=== PATIENT | male | born 1970 | race Caucasian/White ===

== ENCOUNTER 2016-10-08 09:03 | Inpatient (IN) | payer MEDICAID, OTHER ==
[~2016-10-08] VITALS: Ht 180.3 cm; Wt 112.4 kg
[2016-10-08] VITALS (8 sets, daily range): BP systolic 117–160; BP diastolic 57–85; PULSE 61–91; RESP 15–20; TEMP 97.9–98; O2SAT 97–100
[~2016-10-08 09:03] MED LIST: Z.0.NO CURRENT MEDS
[2016-10-08] MEDS ORDERED: CLOPIDOGREL 300 MG TAB PO ONE (09:30)
[2016-10-08] MEDS ORDERED: SODIUM CHLORIDE 0.9% FLUSH 5 ML FLUSH IVF PRN (09:30)
[2016-10-08] MEDS ORDERED: NITROGLYCERIN 2% OINT 1 GM PACKET TOP ONE (09:30)
[2016-10-08] MEDS ORDERED: MORPHINE SULFATE 4 MG/ML INJ IV PUSH ONE (09:30)
[2016-10-08] MEDS ORDERED: ASPIRIN 81 MG CHEW TAB PO ONE (09:30)
[2016-10-08] MEDS ORDERED: ENOXAPARIN SODIUM 120 MG/0.8 ML SYRINGE SQ ONE (09:30)
[2016-10-08 10:07] LABS: AUTOMATED NEUTROPHIL # 6.8 TH/MM3 (1.8-7.7); BASOPHIL # 0.1 TH/MM3 (0-0.2); BASOPHIL % 0.7 % (0.0-2.0); EOSINOPHIL # 0.1 TH/MM3 (0-0.4); EOSINOPHIL % 1.5 % (0.0-4.0); HEMATOCRIT 45.3 % (39.0-51.0); HEMO FLAGS DIFF FINAL; LYMPH % 18.6 % (9.0-44.0); LYMPHOCYTE # 1.8 TH/MM3 (1.0-4.8); MEAN CELL VOLUME 92.7 FL (80.0-100.0); MEAN CORPUSCULAR HEMOGLOBIN 32.9 PG (27.0-34.0); MEAN CORPUSCULAR HGB CONC 35.5 % (32.0-36.0); MONO % 7.5 % (0.0-8.0); NEUT % 71.7 % (16.0-70.0); PLATELET COUNT 253 TH/MM3 (150-450); RED BLOOD COUNT 4.89 MIL/MM3 (4.50-5.90); RED CELL DISTRIBUTION WIDTH 13.1 % (11.6-17.2); WHITE BLOOD COUNT 9.5 TH/MM3 (4.0-11.0)
--- NOTE | 2016-10-08 10:12 | PD ---
HPI . Chest pain Chief Complaint: Chest Pain Time Seen by Provider: 09:18 Travel History International Travel<30 days: No Contact w/Intl Traveler<30days: No Traveled to known affect area: No History of Present Illness HPI Patient presents with the onset of chest pain at about 6:30 AM. It was associated with both arms, shortness of breath, nausea and diaphoresis. It has slowly improved. He states that the pain started when he was loading his stools for the day and improved when he started resting. Patient states he's actually been having problems for about 6 weeks. 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 The pain then improves when he rests. The pain is generally associated with diaphoresis. He describes the discomfort as a weight on his chest. He reports 18-20 episodes in the last 6 weeks lasting anywhere from 15-40 minutes. He has not been evaluated by a physician for this . Patient reports a positive family history for heart disease and states that he is a smoker. PFSH Past Medical History Medical History: Denies Significant Hx Diminished Hearing: No Tetanus Vaccination: > 5 Years Influenza Vaccination: No Past Surgical History Surgical History: No Previous Surgery Social History Alcohol Use: No Tobacco Use: No Substance Use: No Allergies-Medications (Allergen,Severity, Reaction): Coded Allergies: Penicillin (Verified Allergy, Mild, 10/08/16) Reported Meds & Prescriptions Reported Meds & Active Scripts Active No Active Prescriptions or Reported Medications Review of Systems Except as stated in HPI: all other systems reviewed are Neg General / Constitutional: Positive: Other, No: Fever, Chills Cardiovascular: Positive: Chest Pain or Discomfort (diaphoresis) Respiratory: Positive: Shortness of Breath Gastrointestinal: Positive: Nausea Physical Exam Narrative GENERAL: This is a pleasant gentleman who does not appear to be in any acute distress at this time. SKIN: Warm and dry. HEAD: Atraumatic. Normocephalic. EYES: Pupils equal and round. ENT: No nasal bleeding or discharge. Mucous membranes pink and moist. NECK: Trachea midline. Neck is supple. CARDIOVASCULAR: Regular rate and rhythm. Heart sounds are normal. RESPIRATORY: No accessory muscle use. Lungs are clear with full air movement throughout. Chest wall is nontender. GASTROINTESTINAL: Abdomen soft, non-tender, nondistended. MUSCULOSKELETAL: No obvious deformities. No edema. NEUROLOGICAL: Awake and alert. No obvious cranial nerve deficits. Motor grossly within normal limits. Normal speech. PSYCHIATRIC: Appropriate mood and affect; insight and judgment normal. Data Data Last Documented VS Vital Signs Date Time Temp Pulse Resp B/P Pulse Ox O2 Delivery O2 Flow Rate FiO2 10/08/16 10:12 100 Nasal Cannula 2 10/08/16 09:06 97.9 91 15 160/85 Orders Electrocardiogram (10/08/16 ) Basic Metabolic Panel (Bmp) (10/08/16 09:28) Ckmb (Isoenzyme) Profile (10/08/16 09:28) Complete Blood Count With Diff (10/08/16 09:28) Magnesium (Mg) (10/08/16 09:28) Prothrombin Time / Inr (Pt) (10/08/16 09:28) Act Partial Throm Time (Ptt) (10/08/16 09:28) Troponin I (10/08/16 09:28) Chest, Single Ap (10/08/16 09:28) Ecg Monitoring (10/08/16 09:28) Bilateral Bp Monitoring (10/08/16 09:28) Iv Access Insert/Monitor (10/08/16 09:28) Oximetry (10/08/16 09:28) Oxygen Administration (10/08/16 09:28) Aspirin Chew (Aspirin Chew) (10/08/16 09:30) Clopidogrel (Plavix) (10/08/16 09:30) Morphine Inj (Morphine Inj) (10/08/16 09:30) Nitroglycerin 2% Oint (Nitroglycerin 2% (10/08/16 09:30) Sodium Chloride 0.9% Flush (Ns Flush) (10/08/16 09:30) Enoxaparin Inj (Lovenox Inj) (10/08/16 09:30) Electrocardiogram (10/08/16 10:00) Acetaminophen (Tylenol) (10/08/16 11:00) Consult Cardiology (10/08/16 ) Labs Laboratory Tests Test 10/08/16 09:50 White Blood Count 9.5 TH/MM3 Red Blood Count 4.89 MIL/MM3 Hemoglobin 16.1 GM/DL Hematocrit 45.3 % Mean Corpuscular Volume 92.7 FL Mean Corpuscular Hemoglobin 32.9 PG Mean Corpuscular Hemoglobin 35.5 % Concent Red Cell Distribution Width 13.1 % Platelet Count 253 TH/MM3 Mean Platelet Volume 9.7 FL Neutrophils (%) (Auto) 71.7 % Lymphocytes (%) (Auto) 18.6 % Monocytes (%) (Auto) 7.5 % Eosinophils (%) (Auto) 1.5 % Basophils (%) (Auto) 0.7 % Neutrophils # (Auto) 6.8 TH/MM3 Lymphocytes # (Auto) 1.8 TH/MM3 Monocytes # (Auto) 0.7 TH/MM3 Eosinophils # (Auto) 0.1 TH/MM3 Basophils # (Auto) 0.1 TH/MM3 CBC Comment DIFF FINAL Differential Comment Prothrombin Time 10.9 SEC Prothromb Time International 1.0 RATIO Ratio Activated Partial 29.7 SEC Thromboplast Time Sodium Level 139 MEQ/L Potassium Level 3.6 MEQ/L Chloride Level 106 MEQ/L Carbon Dioxide Level 25.1 MEQ/L Anion Gap 8 MEQ/L Blood Urea Nitrogen 10 MG/DL Creatinine 0.94 MG/DL Estimat Glomerular Filtration 86 ML/MIN Rate Random Glucose 101 MG/DL Calcium Level 8.9 MG/DL Magnesium Level 2.0 MG/DL Total Creatine Kinase 88 U/L Troponin I 0.06 NG/ML MDM Medical Decision Making Medical Screen Exam Complete: Yes Emergency Medical Condition: Yes Medical Record Reviewed: Yes (patient has no previous presentations for chest pain and has no old EKGs.) Interpretation(s) EKG shows a sinus rhythm with ST segment depression in the V3, V4, V5 and V6. He also has some ST segment depression in lead II and T-wave inversion in aVL. Furthermore, he has ST segment elevation in aVR. Repeat EKG is improving. The ST segment depression laterally is almost completely gone. He still has some mild ST segment elevation in aVR. Differential Diagnosis Differential diagnosis of chest pain includes but is not limited to musculoskeletal pain, pulmonary embolism, acute coronary syndrome, pneumonia, pleurisy Narrative Course Patient presents for evaluation of anginal like symptoms which have been occurring for the last 6 weeks. I have explained to the patient that he will either go to the catheter lab if his cardiac enzymes are positive go to the chest pain center if his cardiac enzymes are negative. He is agreeable to this plan. CBC is normal. INR and PTT are normal. Electrolytes are normal. CK is 88 and troponin is 0.06. 11 AM Patient is pain-free. I have paged to arrange for disposition. Critical Care Narrative Aggregate critical care time was [-] minutes. Time to perform other separately billable procedures was not included in the critical care time. My time did not include minutes spent treating any other patients simultaneously or on activities that did not directly contribute to the patient's treatment. The services I provided to this patient were to treat and/or prevent clinically significant deterioration that could result in: Fatal cardiac dysrhythmia, cardiac disability I provided critical care services requiring my management, as noted below: Chart data review, documentation time, medication orders and management, vital sign assessments/reviewing monitor data, ordering and reviewing lab tests, ordering and interpreting/reviewing x-rays and diagnostic studies, care of the patient and discussion of the patient with the admitting physicians. Physician Communication Physician Communication [address] Fountain paged. Diagnosis Primary Impression: NSTEMI (non-ST elevated myocardial infarction) Admitting Information Admitting Physician Requests: Admit Scripts No Active Prescriptions or Reported Meds Condition: Stable Araceli Govea MD Oct 08, 2016 10:12
[2016-10-08 10:20] LABS: APTT (PATIENT) 29.7 SEC (24.3-30.1); PROTHROMBIN TIME - PATIENT 10.9 SEC (9.8-11.6)
[2016-10-08 10:22] LABS: BICARBONATE 25.1 MEQ/L (21.0-32.0); POTASSIUM 3.6 MEQ/L (3.5-5.1)
--- NOTE | 2016-10-08 10:28 | RADRPT ---
EXAM DATE/TIME: 10/08/2016 09:46 [facility] COMPARISON: No previous studies available for comparison. INDICATIONS : Chest pain. MEDICAL HISTORY : None. SURGICAL HISTORY : None. ENCOUNTER: Initial ACUITY: 4 - 6 days PAIN SCORE: 5/10 LOCATION: Bilateral center chest FINDINGS: A single view of the chest demonstrates the lungs to be symmetrically aerated without evidence of mas s, infiltrate or effusion. The cardiomediastinal contours are unremarkable. Osseous structures are intact. CONCLUSION: Normal examination. Milind Mahajan MD on October 08, 2016 at 10:26 Board Certified Radiologist. This report was verified electronically.
[2016-10-08] MEDS ORDERED: ACETAMINOPHEN 325 MG TAB PO ONE (11:00)
[2016-10-08] MEDS ORDERED: PRAVASTATIN SOD 40 MG TAB PO SCH (12:00)
[2016-10-08] MEDS ORDERED: SODIUM CHLOR 0.9% 1000 ML INJ 1,000 ML IV SCH (12:36)
[2016-10-08] MEDS ORDERED: SODIUM CHLORIDE 0.9% FLUSH 5 ML FLUSH FLUSH PRN (12:45)
[2016-10-08] MEDS ORDERED: NALOXONE HCL 0.4 MG/ML AMP IV PRN (12:45)
[2016-10-08] MEDS ORDERED: BISACODYL 10 MG SUPP PR PRN (13:00)
[2016-10-08] MEDS ORDERED: MORPHINE SULFATE 4 MG/ML INJ IV PRN (13:00)
[2016-10-08] MEDS ORDERED: SENNOSIDES 8.6 MG TAB PO PRN (13:00)
[2016-10-08] MEDS ORDERED: MAGNESIUM HYDROXIDE SUSP 30 ML CUP PO PRN (13:00)
[2016-10-08] MEDS ORDERED: ONDANSETRON HCL 4 MG/2 ML VIAL IVP PRN (13:00)
[2016-10-08] MEDS ORDERED: ACETAMINOPHEN/HYDROcodone 325 MG/7.5 MG TAB PO PRN (13:00)
[2016-10-08] MEDS: METOPROLOL TARTRATE 25 MG TAB PO SCH (13:59)
[2016-10-08] MEDS: DOCUSATE SODIUM 100 MG CAP PO SCH (13:59)
[2016-10-08] MEDS: NS + KCL 20 MEQ INJ 1,000 ML IV SCH (13:59)
--- NOTE | 2016-10-08 14:13 | HHI.HP ---
[facility] Service [facility] Primary Care Physician No Primary Care Physician Admission Diagnosis NSTEMI Diagnoses: Chief Complaint: Chest pain Travel History International Travel<30 Days: No Contact w/Intl Traveler <30 Da: No Traveled to Known Affected Are: No History of Present Illness This is a 46-year-old male smoker who presented to the emergency room because of chest pain. Patient states he developed moderate sharp right sided chest pain scale of 8 out of 10 that lasted for 15 minutes this morning and radiated to bilateral upper extremities associated with shortness of breath, diaphoresis and nausea. Slowly improved without medications. It recurred while he was preparing to go to work prompting ER evaluation. Patient states he's been having on and off exertional chest pain for the past 6 weeks. It is not pleuritic and doesn't feel like heartburn. 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 Denies dizziness and palpitations. No history of CAD, peripheral vascular disease, DVT and pulmonary embolism. He traveled to [facility] 3 weeks ago but denies leg pain. He has intermittent hand, foot pain and lower extremity swelling whenever he drinks last alcohol intake 3 weeks ago. In the emergency department, he was noted to have abnormal EKG(see below) and slightly elevated troponin. Cardiology plans to do cardiac catheterization later today and requested medical services to admit the patient. At this time he is pain-free. Patient reports a positive family history for heart disease and a 36 pack year smoker. Review of Systems Constitutional: COMPLAINS OF: Diaphoretic episodes, DENIES: Fatigue, Fever, Weight gain, Weight loss, Chills, Dizziness, Change in appetite, Night Sweats Endocrine: DENIES: Heat/cold intolerance, Polydipsia, Polyuria, Polyphagia Eyes: DENIES: Blurred vision, Diplopia, Vision loss, Photosensitivity Ears, nose, mouth, throat: DENIES: Tinnitus, Vertigo, Throat pain, Hoarseness, Epistaxis, Odynophagia Respiratory: COMPLAINS OF: Shortness of breath, DENIES: Cough, Wheezing, Hemoptysis, Sputum production Cardiovascular: COMPLAINS OF: Chest pain, DENIES: Palpitations, Syncope, Dyspnea on Exertion, PND, Lower Extremity Edema, Orthopnea, Claudication Gastrointestinal: COMPLAINS OF: Nausea, DENIES: Abdominal pain, Black stools, Bloody stools, Constipation, Diarrhea, Vomiting, Difficulty Swallowing, Anorexia Genitourinary: DENIES: Urinary frequency, Urinary incontinence, Urgency, Hematuria, Dysuria, Nocturia, Penile Discharge Musculoskeletal: COMPLAINS OF: Muscle aches, Back pain (from work ) Integumentary: DENIES: Rash Neurologic: DENIES: Headache, Localized weakness, Seizures, Tremor, Poor Balance Psychiatric: DENIES: Anxiety, Confusion, Depression, Hallucinations, Agitation , Suicidal Ideation, Homicidal Ideation, Delusions Past Family Social History Past Medical History Negative Past Surgical History None Reported Medications None Allergies: Coded Allergies: Penicillin (Verified Allergy, Mild, 10/08/16) Family History as mentioned Social History As mentioned Physical Exam Vital Signs Vital Signs Date Time Temp Pulse Resp B/P Pulse Ox O2 Delivery O2 Flow Rate FiO2 10/08/16 12:40 75 16 131/77 98 Nasal Cannula 2 10/08/16 10:12 100 Nasal Cannula 2 10/08/16 10:12 100 Nasal Cannula 2 10/08/16 09:16 Room Air 10/08/16 09:06 97.9 91 15 160/85 98 Physical Exam GENERAL: This is a well-nourished, well-developed patient, in no apparent distress. SKIN: No rashes, ecchymoses or lesions. Cool and dry. HEAD: Atraumatic. Normocephalic. No temporal or scalp tenderness. EYES: Pupils equal round and reactive. Extraocular motions intact. No scleral icterus. No injection or drainage. ENT: Nose without bleeding, purulent drainage or septal hematoma. Throat without erythema, tonsillar hypertrophy or exudate. Uvula midline. Airway patent. NECK: Trachea midline. No JVD or lymphadenopathy. Supple, nontender, no meningeal signs. CARDIOVASCULAR: Regular rate and rhythm without murmurs, gallops, or rubs. No reproducible chest pain RESPIRATORY: Clear to auscultation. Breath sounds equal bilaterally. No wheezes , rales, or rhonchi. GASTROINTESTINAL: Abdomen soft, non-tender, nondistended. No guarding. MUSCULOSKELETAL: Extremities without clubbing, cyanosis, or edema. No joint tenderness, effusion, or edema noted. No calf tenderness. Negative Homans sign bilaterally. NEUROLOGICAL: Awake and alert. Cranial nerves II through XII intact. Motor and sensory grossly within normal limits. Five out of 5 muscle strength in all muscle groups. Normal speech. Laboratory Laboratory Tests Test 10/08/16 09:50 White Blood Count 9.5 Red Blood Count 4.89 Hemoglobin 16.1 Hematocrit 45.3 Mean Corpuscular Volume 92.7 Mean Corpuscular Hemoglobin 32.9 Mean Corpuscular Hemoglobin 35.5 Concent Red Cell Distribution Width 13.1 Platelet Count 253 Mean Platelet Volume 9.7 Neutrophils (%) (Auto) 71.7 Lymphocytes (%) (Auto) 18.6 Monocytes (%) (Auto) 7.5 Eosinophils (%) (Auto) 1.5 Basophils (%) (Auto) 0.7 Neutrophils # (Auto) 6.8 Lymphocytes # (Auto) 1.8 Monocytes # (Auto) 0.7 Eosinophils # (Auto) 0.1 Basophils # (Auto) 0.1 CBC Comment DIFF FINAL Differential Comment Prothrombin Time 10.9 Prothromb Time International 1.0 Ratio Activated Partial 29.7 Thromboplast Time Sodium Level 139 Potassium Level 3.6 Chloride Level 106 Carbon Dioxide Level 25.1 Anion Gap 8 Blood Urea Nitrogen 10 Creatinine 0.94 Estimat Glomerular Filtration 86 Rate Random Glucose 101 Calcium Level 8.9 Magnesium Level 2.0 Total Creatine Kinase 88 Troponin I 0.06 Result Diagram: 10/08/1650 10/08/16949 Imaging EKG shows a sinus rhythm with ST segment depression in the V3, V4, V5 and V6. He also has some ST segment depression in lead II and T-wave inversion in aVL. Tracing interpreted by me Chest x-ray image interpreted by me with no cardiopulmonary disease Last Impressions Chest X-Ray 10/08/16927 Signed Impressions: Service Date/Time: Saturday, October 08, 2016 09:46 - CONCLUSION: Normal examination. Milind Mahajan MD Assessment and Plan Problem List: (1) NSTEMI (non-ST elevated myocardial infarction) ICD Code: I21.4 Status: Acute Assessment and Plan This is a 46-year-old male smoker who presented to the emergency room because of chest pain. Patient states he developed moderate sharp right sided chest pain scale of 8 out of 10 that lasted for 15 minutes this morning and radiated to bilateral upper extremities associated with shortness of breath, diaphoresis and nausea. Slowly improved without medications. It recurred while he was preparing to go to work prompting ER evaluation. Patient states he's been having on and off exertional chest pain for the past 6 weeks. It is not pleuritic and doesn't feel like heartburn. 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 Denies dizziness and palpitations. NSTEMI with abnormal EKG and slightly elevated troponin. At this time he is pain-free. Cardiology plans to do cardiac catheterization later today. Continue aspirin, nitrates, Lopressor and statin. Risk factor modification. Obtain A1c and lipid profile. Tobacco cessation Grief from recent loss of his mother. Counselled DVT prophylaxis s/p Lovenox Discussed Condition With pt Quinton Alonso MD Oct 08, 2016 14:13
[2016-10-08] MEDS ORDERED: IOHEXOL 350 MG/ML 100 ML BTL (for Cath Lab) OTHER ONE (14:25)
[2016-10-08] MEDS ORDERED: IOHEXOL 350 MG/ML 50 ML BTL (for Cath Lab) OTHER ONE (14:25)
[2016-10-08] MEDS ORDERED: PRAV40TA PO (15:20)
[2016-10-08] MEDS ORDERED: NITR1SUB3 SL (15:20)
--- NOTE | 2016-10-08 15:21 | HHI.DCPOC ---
Discharge Care Plan Diagnosis: (1) NSTEMI (non-ST elevated myocardial infarction) Your Health Problems Are: Difficulty with ADL Exercise Tolerance Goals to Promote Your Health * To prevent worsening of your condition and complications * To maintain your health at the optimal level Directions to Meet Your Goals Take your medications as prescribed Follow your dietary instruction Follow activity as directed Keep your appointments as scheduled Take your immunizations and boosters as scheduled If your symptoms worsen call your PCP, if no PCP go to Urgent Care Center or Emergency Room Smoking is Dangerous to Your Health. Avoid second hand smoke Call the 24-hour hour crisis hotline for domestic abuse at Quinton Alonso MD Oct 08, 2016 15:21
--- NOTE | 2016-10-08 16:09 | EKG ---
Date Performed: 10/08/2016 Time Performed: 10:15:28 PTAGE: 46 years EKG: Sinus rhythm NONSPECIFIC ST & T-WAVE ABNORMALITY BORDERLINE ECG PREVIOUS TRACING : 10/08/2016 09.16 Compared to prior tracing no significant change DOCTOR: Hasmukh Nelson Interpretating Date/Time 10/08/2016 16:09:13
--- NOTE | 2016-10-08 16:13 | EKG ---
Date Performed: 10/08/2016 Time Performed: 09:16:12 PTAGE: 46 years EKG: Sinus rhythm POSSIBLE LEFT ATRIAL ENLARGEMENT BORDERLINE LEFT AXIS DEVIATION NONSPECIFIC ST & T-WAVE ABNORMALITY ABNORMAL ECG NO PREVIOUS TRACING DOCTOR: Hasmukh Nelson Interpretating Date/Time 10/08/2016 16:11:42
--- NOTE | 2016-10-08 16:15 | MB ---
cc: MICHAELLE DEVLIN DATE OF CONSULTATION: 10/08/2016. REASON FOR CONSULTATION: HISTORY OF PRESENT ILLNESS: Mr. Freedman is a 46-year-old white male with six week history of substernal chest discomfort which he describes as a weight on his chest associated with diaphoresis and dyspnea. 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 The patient has a strong family history of coronary artery disease and states his father at the age of 52. PAST MEDICAL HISTORY: His past medical history is negative for hypertension, dyslipidemia, diabetes, coronary artery disease and CVA. PAST SURGICAL HISTORY: No major surgeries. MEDICATIONS: None. ALLERGIES: PENICILLIN. SOCIAL HISTORY: The patient is a smoker. He quit drinking alcohol nine months ago. 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 FAMILY HISTORY: The family history is strongly positive for heart disease. His father at the age of 52 of myocardial infarction. REVIEW OF SYSTEMS: The review of systems is otherwise negative. PHYSICAL EXAMINATION: VITAL SIGNS: Blood pressure is 150/85, pulse 91 and regular. HEAD, EYES, EARS, NOSE, THROAT: Negative. NECK: 2+ carotid upstrokes, no bruits. LUNGS: Clear. HEART: Regular with no murmurs, rubs or gallops. ABDOMEN: Abdomen soft. No bruits. EXTREMITIES: Without edema. 2+ distal pulses. NEUROLOGIC: Grossly intact. CARDIOLOGY STUDIES: EKG was reviewed and showed normal sinus rhythm and diffuse S-T depressions. LABS: Hemoglobin 16.1. Potassium 3.6, creatinine 0.9. CK 88. Troponin 0.06. DIAGNOSIS: 1. Non S-T elevation myocardial infarction. 2. Smoking. 3. Strong family history of coronary artery disease. DISPOSITION: Mr. Freedman will be scheduled for a cardiac catheterization and coronary intervention if necessary. This will need to be delayed because he was fully anticoagulated with Lovenox by the emergency room physician. We will initiate aggressive modification ofhis cardiac risk factors. We will also initiate therapy for angina. MD MYKEL Eugene/GELY /11:50 AM /4:05 PM [facility]ALTanmay
[2016-10-08] MEDS ORDERED: HEPARIN-NS/PF INJ 500 ML ONE (16:34)
[2016-10-08] MEDS ORDERED: MIDAZOLAM HCL 5 MG/5 ML VIAL ONE (16:34)
[2016-10-08] MEDS ORDERED: NITROGLYCERIN INJ 5 ML ONE (16:59)
[2016-10-08] MEDS: NITROGLYCERIN 2% OINT 1 GM PACKET TOP SCH (17:00)
[2016-10-08 19:00] LABS: HDL CHOLESTEROL 33.4 MG/DL (40.0-60.0)
[2016-10-08] MEDS ORDERED: SODIUM CHLOR 0.9% 1000 ML INJ 500 ML IV SCH (19:00)
[2016-10-08] MEDS: ISOSORBIDE MONONITRATE 30 MG TAB PO SCH (19:02)
[2016-10-08] MEDS: ATORVASTATIN 80 MG TAB PO SCH (19:15)
[2016-10-08] MEDS ORDERED: METOPROLOL TARTRATE 25 MG TAB PO SCH (21:00)
[2016-10-09] VITALS (22 sets, daily range): BP systolic 98–155; BP diastolic 51–96; PULSE 56–98; RESP 18–20; TEMP 98–98.4; O2SAT 97–98
[2016-10-09] MEDS: NS + KCL 20 MEQ INJ 1,000 ML IV SCH ×2 (00:13→08:17)
[2016-10-09] MEDS: NITROGLYCERIN 2% OINT 1 GM PACKET TOP SCH ×2 (00:13→08:10)
[2016-10-09] MEDS: ACETAMINOPHEN/HYDROcodone 325 MG/5 MG TAB PO PRN (00:14)
[2016-10-09] MEDS: ISOSORBIDE MONONITRATE 30 MG TAB PO SCH (06:13)
[2016-10-09 07:22] LABS: AUTOMATED NEUTROPHIL # 10.7 TH/MM3 (1.8-7.7); BASOPHIL % 0.2 % (0.0-2.0); EOSINOPHIL # 0.1 TH/MM3 (0-0.4); HEMATOCRIT 39.5 % (39.0-51.0); HEMO FLAGS DIFF FINAL; LYMPH % 10.3 % (9.0-44.0); LYMPHOCYTE # 1.4 TH/MM3 (1.0-4.8); MEAN CELL VOLUME 93.9 FL (80.0-100.0); MEAN CORPUSCULAR HEMOGLOBIN 32.6 PG (27.0-34.0); MEAN CORPUSCULAR HGB CONC 34.8 % (32.0-36.0); MONO % 7.8 % (0.0-8.0); NEUT % 80.7 % (16.0-70.0); PLATELET COUNT 204 TH/MM3 (150-450); RED CELL DISTRIBUTION WIDTH 12.7 % (11.6-17.2); WHITE BLOOD COUNT 13.2 TH/MM3 (4.0-11.0)
[2016-10-09 07:37] LABS: ALKALINE PHOSPHATASE 44 U/L (45-117); ALT (GPT) 23 U/L (12-78); ANION GAP 7 MEQ/L (5-15); AST (GOT) 11 U/L (15-37); BLOOD UREA NITROGEN 9 MG/DL (7-18); CHLORIDE 105 MEQ/L (98-107); GLOMERULAR FILTRATION RATE 101 ML/MIN (>89); HDL CHOLESTEROL 27.9 MG/DL (40.0-60.0); LDL CHOLESTEROL 104 MG/DL (0-99); POTASSIUM 4.1 MEQ/L (3.5-5.1); SODIUM (NA) 138 MEQ/L (136-145); TOTAL BILIRUBIN ADULT 0.7 MG/DL (0.2-1.0)
[2016-10-09] MEDS: ATORVASTATIN 80 MG TAB PO SCH (08:08)
[2016-10-09] MEDS: DOCUSATE SODIUM 100 MG CAP PO SCH ×2 (08:09→21:42)
[2016-10-09] MEDS: METOPROLOL TARTRATE 25 MG TAB PO SCH ×2 (08:09→21:42)
[2016-10-09] MEDS: ACETAMINOPHEN 325 MG TAB PO PRN ×2 (08:09→12:28)
[2016-10-09] MEDS: SODIUM CHLORIDE 0.9% FLUSH 5 ML FLUSH FLUSH SCH ×2 (08:10→21:42)
[2016-10-09] MEDS: ASPIRIN 81 MG CHEW TAB PO SCH (08:10)
[2016-10-09] MEDS ORDERED: ASPIRIN EC 81 MG TABEC PO SCH (09:00)
--- NOTE | 2016-10-09 11:10 | HHI.PR ---
Subjective Remarks Follow-up ND. No chest pain. Awaiting cardiovascular surgery consult. Discussed with RN Objective Vitals Vital Signs Date Time Temp Pulse Resp B/P Pulse Ox O2 Delivery O2 Flow Rate FiO2 10/09/16 09:42 18 10/09/16 07:45 60 10/09/16 07:45 98.4 67 18 155/51 97 10/09/16 06:00 65 10/09/16 05:00 66 10/09/16 04:40 98 10/09/16 04:00 59 10/09/16 04:00 98.0 63 20 98/62 98 10/09/16 03:00 65 10/09/16 02:00 67 10/09/16 01:00 66 10/09/16 00:00 98.0 70 20 101/66 98 10/09/16 00:00 64 10/08/16 23:00 63 10/08/16 22:00 62 10/08/16 21:30 98.0 61 20 135/77 98 10/08/16 21:30 65 10/08/16 19:55 Room Air 10/08/16 16:17 62 20 117/57 99 Nasal Cannula 2 10/08/16 14:00 65 20 122/63 97 Nasal Cannula 2 10/08/16 12:40 75 16 131/77 98 Nasal Cannula 2 I/O 10/08/16 10/08/16 10/08/16 10/09/16 10/09/16 10/09/16 07:00 15:00 23:00 07:00 15:00 23:00 Intake Total 420 ml Output Total 850 ml Balance -430 ml Intake Oral 420 ml Output Urine Total 850 ml Result Diagram: 10/09/1611 10/09/16610 Imaging Last Impressions Chest X-Ray 10/08/16927 Signed Impressions: Service Date/Time: Saturday, October 08, 2016 09:46 - CONCLUSION: Normal examination. Milind Mahajan MD Objective Remarks GENERAL: This is a well-nourished, well-developed patient, in no apparent distress. CARDIOVASCULAR: Regular rate and rhythm without murmurs, gallops, or rubs. RESPIRATORY: Clear to auscultation. Breath sounds equal bilaterally. No wheezes , rales, or rhonchi. GASTROINTESTINAL: Abdomen soft, non-tender, nondistended. Normal active bowel sounds MUSCULOSKELETAL: Extremities without clubbing, cyanosis, or edema. NEURO: Alert & Oriented x4 to person, place, time, situation. Moves all ext x4 Procedures Cardiac catheterization A/P Problem List: (1) NSTEMI (non-ST elevated myocardial infarction) ICD Code: I21.4 Status: Acute Assessment and Plan This is a 46-year-old male smoker who presented to the emergency room because of chest pain. Patient states he developed moderate sharp right sided chest pain scale of 8 out of 10 that lasted for 15 minutes this morning and radiated to bilateral upper extremities associated with shortness of breath, diaphoresis and nausea. Slowly improved without medications. It recurred while he was preparing to go to work prompting ER evaluation. Patient states he's been having on and off exertional chest pain for the past 6 weeks. It is not pleuritic and doesn't feel like heartburn. 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 Denies dizziness and palpitations. NSTEMI status post cardiac catheterization. At this time he is pain-free, continue aspirin, Lopressor, nitrates and Lipitor. Awaiting cardiovascular surgery evaluation. Risk factor modification. Follow-up A1c. Tobacco cessation Transient low BP secondary to meds. Improved. Nitro paste discontinued and Lopressor decreased. Continue to monitor Grief from recent loss of his mother. Counselled DVT prophylaxis s/p Lovenox. SCDs and early ambulation Discharge Planning Per cardiology and cardiovascular surgery Quinton Alonso MD Oct 09, 2016 11:10
--- NOTE | 2016-10-09 12:19 | EKG ---
Date Performed: 10/08/2016 Time Performed: 14:16:27 PTAGE: 46 years EKG: Sinus rhythm POSSIBLE RIGHT VENTRICULAR CONDUCTION DELAY NONSPECIFIC T-WAVE ABNORMALITY BORDERLINE ECG PREVIOUS TRACING : 10/08/2016 10.15 Compared to prior tracing no significant change DOCTOR: Paras Morales Interpretating Date/Time 10/09/2016 12:17:46
--- NOTE | 2016-10-09 12:19 | EKG ---
Date Performed: 10/08/2016 Time Performed: 20:49:18 PTAGE: 46 years EKG: Sinus bradycardia Lateral T wave changes are nonspecific Borderline ECG PREVIOUS TRACING 10/08/2016 @14.16.27 Compared to prior tracing no significant change DOCTOR: Paras Morales Interpretating Date/Time 10/09/2016 12:17:06
--- NOTE | 2016-10-09 12:36 | PD.CONS ---
History of Present Illness Service CT Surgery Consult Requested By Dr. Fountain Reason for Consult CAD, unstable angina Primary Care Physician No Primary Care Physician Diagnoses: (1) Unstable angina (2) CAD (coronary artery disease) History of Present Illness This is a 46-year-old male smoker who presented to the emergency room with rest chest pain. Patient states he developed chest pain scale of 8 out of 10 that lasted for 15 minutes this morning and radiated to bilateral upper extremities associated with shortness of breath, diaphoresis and nausea. This subsided over time and recurred while he was preparing to go to work prompting ER evaluation. Patient states he's been having on and off exertional chest pain for the past 6 weeks. No history of CAD, peripheral vascular disease, DVT and pulmonary embolism. He traveled to [facility] 3 weeks ago but denies leg pain. In the emergency department, he was noted to have abnormal EKG(see below) and slightly elevated troponin. At this time he is pain-free. Patient reports a positive family history for heart disease and a 36 pack year smoker. He underwent LHC by Dr. Fountain and was found to have a >90% proximal LAD lesion at the bifurcation from the left main. He is being considered for CABG. Review of Systems Constitutional: COMPLAINS OF: Diaphoretic episodes, Fatigue Endocrine: DENIES: Heat/cold intolerance, Polydipsia, Polyuria, Polyphagia Eyes: DENIES: Blurred vision, Diplopia, Eye inflammation, Eye pain, Vision loss , Photosensitivity, Double Vision Ears, nose, mouth, throat: DENIES: Tinnitus, Hearing loss, Vertigo, Nasal discharge, Oral lesions, Throat pain, Hoarseness, Ear Pain, Running Nose, Epistaxis, Sinus Pain, Toothache, Odynophagia Respiratory: DENIES: Apneas, Cough, Snoring, Wheezing, Hemoptysis, Sputum production, Shortness of breath Cardiovascular: COMPLAINS OF: Chest pain, DENIES: Palpitations, Syncope, Dyspnea on Exertion, PND, Lower Extremity Edema, Orthopnea, Claudication Gastrointestinal: DENIES: Abdominal pain, Black stools, Bloody stools, Constipation, Diarrhea, Nausea, Vomiting, Difficulty Swallowing, Anorexia Genitourinary: DENIES: Sexual dysfunction, Urinary frequency, Urinary incontinence, Urgency, Hematuria, Dysuria, Nocturia, Penile Discharge, Testicular Pain, Testicular Swelling Musculoskeletal: DENIES: Joint pain, Muscle aches, Stiffness, Joint Swelling, Back pain, Neck pain Integumentary: DENIES: Abnormal pigmentation, Nail changes, Pruritus, Rash Hematologic/lymphatic: DENIES: Bruising, Lymphadenopathy Immunologic/allergic: DENIES: Eczema, Urticaria Neurologic: DENIES: Abnormal gait, Headache, Localized weakness, Paresthesias, Seizures, Speech Problems, Tremor, Poor Balance Psychiatric: DENIES: Anxiety, Confusion, Mood changes, Depression, Hallucinations, Agitation, Suicidal Ideation, Homicidal Ideation, Delusions Past Family Social History Allergies: Coded Allergies: Penicillin (Verified Allergy, Mild, 10/08/16) Past Medical History none Past Surgical History none Reported Medications none Active Ordered Medications Current Medications Medications (Trade) Dose Ordered Sig/Jessi Route Start Time Stop Time Status Last Admin (Lopressor) 25 mg Q12HR PO 10/08/16 12:00 10/09/16 08:09 (NS Flush) 2 ml UNSCH PRN FLUSH 10/08/16 12:45 (NS Flush) 2 ml BID FLUSH 10/08/16 21:00 10/09/16 08:10 (Tylenol) 650 mg Q4H PRN PO 10/08/16 15:00 10/09/16 08:09 (Zofran Inj) 4 mg Q6HR PRN IVP 10/08/16 13:00 (Dulcolax Supp) 10 mg DAILY PRN [place] 10/08/16 13:00 (Colace) 100 mg Q12HR PO 10/08/16 13:00 10/09/16 08:09 (Milk Of Magnesia Liq) 30 ml Q12HR PRN PO 10/08/16 13:00 (Senokot) 17.2 mg Q12HR PRN PO 10/08/16 13:00 (Tylenol) 650 mg Q6H PRN PO 10/08/16 13:00 (Hutto 5-325 Mg) 1 tab Q4H PRN PO 10/08/16 12:45 10/09/16 00:14 (Hutto 7.5-325 Mg) 1 tab Q4H PRN PO 10/08/16 13:00 10/08/16 20:20 (Morphine Inj) 1 mg Q3H PRN IV 10/08/16 13:00 (Narcan Inj) 0.4 mg UNSCH PRN IV 10/08/16 12:45 (Aspirin Chew) 81 mg DAILY PO 10/09/16 09:00 10/09/16 08:10 (Lipitor) 80 mg DAILY PO 10/08/16 19:15 10/09/16 08:08 (Imdur) 30 mg DAILY@07 PO 10/08/16 19:02 10/09/16 06:13 Family History Significant for CAD 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 Denies ETOH/drug abuse Tobacco abuse ongoing Physical Exam Vital Signs Vital Signs Date Time Temp Pulse Resp B/P Pulse Ox O2 Delivery O2 Flow Rate FiO2 10/09/16 12:01 72 10/09/16 11:57 68 10/09/16 11:48 68 10/09/16 11:48 98.3 66 18 131/71 97 10/09/16 10:24 63 10/09/16 09:58 60 10/09/16 09:42 18 10/09/16 07:45 60 10/09/16 07:45 98.4 67 18 155/51 97 10/09/16 06:00 65 10/09/16 05:00 66 10/09/16 04:40 98 10/09/16 04:00 59 10/09/16 04:00 98.0 63 20 98/62 98 10/09/16 03:00 65 10/09/16 02:00 67 10/09/16 01:00 66 10/09/16 00:00 98.0 70 20 101/66 98 10/09/16 00:00 64 10/08/16 23:00 63 10/08/16 22:00 62 10/08/16 21:30 98.0 61 20 135/77 98 10/08/16 21:30 65 10/08/16 19:55 Room Air 10/08/16 16:17 62 20 117/57 99 Nasal Cannula 2 10/08/16 14:00 65 20 122/63 97 Nasal Cannula 2 10/08/16 12:40 75 16 131/77 98 Nasal Cannula 2 Physical Exam GENERAL: This is a well-nourished, well-developed patient, in no apparent distress. SKIN: No rashes, ecchymoses or lesions. Cool and dry. HEAD: Atraumatic. Normocephalic. No temporal or scalp tenderness. EYES: Pupils equal round and reactive. Extraocular motions intact. No scleral icterus. No injection or drainage. ENT: Nose without bleeding, purulent drainage or septal hematoma. Throat without erythema, tonsillar hypertrophy or exudate. Uvula midline. Airway patent. NECK: Trachea midline. No JVD or lymphadenopathy. Supple, nontender, no meningeal signs. CARDIOVASCULAR: Regular rate and rhythm without murmurs, gallops, or rubs. RESPIRATORY: Clear to auscultation. Breath sounds equal bilaterally. No wheezes , rales, or rhonchi. GASTROINTESTINAL: Abdomen soft, non-tender, nondistended. No hepato-splenomegaly , or palpable masses. No guarding. MUSCULOSKELETAL: Extremities without clubbing, cyanosis, or edema. No joint tenderness, effusion, or edema noted. No calf tenderness. Negative Homans sign bilaterally. NEUROLOGICAL: Awake and alert. Cranial nerves II through XII intact. Motor and sensory grossly within normal limits. Five out of 5 muscle strength in all muscle groups. Normal speech. Laboratory Laboratory Tests Test 10/08/16 10/09/16 10/09/16 14:05 01:37 06:11 Total Creatine Kinase 71 52 Troponin I 0.06 0.03 White Blood Count 13.2 Red Blood Count 4.20 Hemoglobin 13.7 Hematocrit 39.5 Mean Corpuscular Volume 93.9 Mean Corpuscular Hemoglobin 32.6 Mean Corpuscular Hemoglobin 34.8 Concent Red Cell Distribution Width 12.7 Platelet Count 204 Mean Platelet Volume 10.0 Neutrophils (%) (Auto) 80.7 Lymphocytes (%) (Auto) 10.3 Monocytes (%) (Auto) 7.8 Eosinophils (%) (Auto) 1.0 Basophils (%) (Auto) 0.2 Neutrophils # (Auto) 10.7 Lymphocytes # (Auto) 1.4 Monocytes # (Auto) 1.0 Eosinophils # (Auto) 0.1 Basophils # (Auto) 0.0 CBC Comment DIFF FINAL Differential Comment Sodium Level 138 Potassium Level 4.1 Chloride Level 105 Carbon Dioxide Level 26.0 Anion Gap 7 Blood Urea Nitrogen 9 Creatinine 0.82 Estimat Glomerular Filtration 101 Rate Random Glucose 99 Calcium Level 8.3 Total Bilirubin 0.7 Aspartate Amino Transf 11 (AST/SGOT) Alanine Aminotransferase 23 (ALT/SGPT) Alkaline Phosphatase 44 Total Protein 6.4 Albumin 3.5 Triglycerides Level 175 Cholesterol Level 167 LDL Cholesterol 104 HDL Cholesterol 27.9 Cholesterol/HDL Ratio 5.98 Result Diagram: 10/09/16 0611 10/09/16610 Imaging Last Impressions Chest X-Ray 10/08/16927 Signed Impressions: Service Date/Time: Saturday, October 08, 2016 09:46 - CONCLUSION: Normal examination. Milind Mahajan MD Course Pain-free. Stable course Assessment and Plan Problem List: (1) NSTEMI (non-ST elevated myocardial infarction) Status: Acute (2) Unstable angina Status: Acute (3) CAD (coronary artery disease) Status: Acute Assessment and Plan 46 y/o male presents with small NSTEMI, rest pain, CAD. CABG recommended. I reviewed hi cath films and am concerned about his left main as well. I will confer with Dr. Fountain on this finding. I discussed risks and benefits of cabg with him and he agrees to proceed. RISK SCORES About the STS Risk Calculator Procedure: CAB Only Risk of Mortality: 0.222% Morbidity or Mortality: 4.922% Long Length of Stay: 1.059% Short Length of Stay: 80.668% Permanent Stroke: 0.198% Prolonged Ventilation: 3.127% DSW Infection: 0.148% Renal Failure: 0.5% Reoperation: 2.32% Problem Qualifiers (1) CAD (coronary artery disease): Qualified Code: I25.110 - Coronary artery disease involving mohegan coronary artery of mohegan heart with unstable angina pectoris Aaliyah Leon MD Oct 09, 2016 12:36
[2016-10-09 12:45] LABS: HEMOGLOBIN A1a 1.1 %; HEMOGLOBIN A1b 0.8 %; HEMOGLOBIN Ao 85.8 %; HEMOGLOBIN F 0.9 %; HEMOGLOBIN P3 3.6 %
[2016-10-10] VITALS (8 sets, daily range): BP systolic 93–154; BP diastolic 44–88; PULSE 58–132; RESP 16–20; TEMP 97.8–98.3; O2SAT 96–98
[2016-10-10] MEDS: METOPROLOL TARTRATE 25 MG TAB PO SCH (07:14)
[2016-10-10] MEDS: ISOSORBIDE MONONITRATE 30 MG TAB PO SCH (07:14)
[2016-10-10] MEDS ORDERED: METOPROLOL TARTRATE 50 MG TAB PO STA (07:39)
[2016-10-10] MEDS: ATORVASTATIN 80 MG TAB PO SCH (09:43)
[2016-10-10] MEDS: DOCUSATE SODIUM 100 MG CAP PO SCH ×2 (09:43→21:07)
[2016-10-10] MEDS: ASPIRIN 81 MG CHEW TAB PO SCH (09:43)
[2016-10-10] MEDS: SODIUM CHLORIDE 0.9% FLUSH 5 ML FLUSH FLUSH SCH ×2 (09:44→21:07)
[2016-10-10] MEDS: METOPROLOL TARTRATE 50 MG TAB PO SCH ×2 (10:38→21:07)
--- NOTE | 2016-10-10 12:07 | PD.CAR.PN ---
CVT Progress Note Subjective/Hospital Course: No c/o. In AFIB this morning, rate controlled. Objective: Vital Signs Date Time Temp Pulse Resp B/P Pulse Ox O2 Delivery O2 Flow Rate FiO2 10/10/16 07:11 98 21 10/10/16 07:00 126 10/10/16 07:00 96 Room Air 10/10/16 07:00 98.1 126 20 104/44 96 10/10/16 06:30 126 18 154/88 97 10/10/16 06:30 132 10/10/16 04:00 58 10/10/16 00:00 58 10/10/16 00:00 59 16 120/63 97 10/09/16 23:00 21 10/09/16 20:00 98 Room Air 10/09/16 20:00 98.4 68 18 150/96 98 10/09/16 20:00 68 10/09/16 18:05 65 10/09/16 17:11 70 10/09/16 16:08 68 10/09/16 15:51 98 10/09/16 15:51 98.3 69 20 148/83 97 10/09/16 14:45 66 10/09/16 13:41 97 10/09/16 13:31 18 10/09/16 13:31 56 Result Diagram: 10/09/1661010/09/16610 Imaging: Last Impressions Chest X-Ray 10/08/16927 Signed Impressions: Service Date/Time: Saturday, October 08, 2016 09:46 - CONCLUSION: Normal examination. Milind Mahajan MD Cardiovascular: IRR Telemetry: AFIB Pulmonary: CTA GI/: SUKUMAR DENIS Plan: Plan for CABG Tuesday. Plan discussed with the patient as well as risks/ benefits. He prefers a small incision approach if possible. Aaliyah Leon MD Oct 10, 2016 12:07
--- NOTE | 2016-10-10 12:14 | EKG ---
Date Performed: 10/10/2016 Time Performed: 06:43:08 PTAGE: 46 years EKG: Atrial fibrillation with rapid ventricular response. Septal and lateral ST-T changes are no nspecific Abnormal ECG PREVIOUS TRACING 10/08/2016 20.49.18 Compared to previous tracing, atrial fibrillation with ra pid ventricular response has replaced Sinus rhythm . DOCTOR: Paras Morales Interpretating Date/Time 10/10/2016 12:13:12
--- NOTE | 2016-10-10 12:59 | HHI.PR ---
Subjective Remarks Follow-up coronary artery disease. Chest pain recurred this morning noted to be in A. fib RVR. Denies radiation of pain, nausea, palpitations and shortness of breath. Discussed with RN Objective Vitals Vital Signs Date Time Temp Pulse Resp B/P Pulse Ox O2 Delivery O2 Flow Rate FiO2 10/10/16 07:11 98 21 10/10/16 07:00 126 10/10/16 07:00 96 Room Air 10/10/16 07:00 98.1 126 20 104/44 96 10/10/16 06:30 126 18 154/88 97 10/10/16 06:30 132 10/10/16 04:00 58 10/10/16 00:00 58 10/10/16 00:00 59 16 120/63 97 10/09/16 23:00 21 10/09/16 20:00 98 Room Air 10/09/16 20:00 98.4 68 18 150/96 98 10/09/16 20:00 68 10/09/16 18:05 65 10/09/16 17:11 70 10/09/16 16:08 68 10/09/16 15:51 98 10/09/16 15:51 98.3 69 20 148/83 97 10/09/16 14:45 66 10/09/16 13:41 97 10/09/16 13:31 18 10/09/16 13:31 56 I/O 10/09/16 10/09/16 10/09/16 10/10/16 10/10/16 10/10/16 07:00 15:00 23:00 07:00 15:00 23:00 Intake Total 420 ml 720 ml Output Total 850 ml 2200 ml Balance -430 ml -1480 ml Intake Oral 420 ml 720 ml Output Urine Total 850 ml 2200 ml # Bowel Movements 0 Result Diagram: 10/09/16 0611 10/09/16 0611 Imaging Last Impressions Chest X-Ray 10/08/16927 Signed Impressions: Service Date/Time: Saturday, October 08, 2016 09:46 - CONCLUSION: Normal examination. Milind Mahajan MD Objective Remarks GENERAL: Well-developed, well-nourished in no distress SKIN: Warm and dry. HEAD: Atraumatic. Normocephalic. EYES: Pupils equal and round. No scleral icterus. No injection or drainage. ENT: No nasal bleeding or discharge. Mucous membranes pink and moist. NECK: Trachea midline. No JVD. CARDIOVASCULAR: Irregularly irregular RESPIRATORY: No accessory muscle use. Clear to auscultation. Breath sounds equal bilaterally. GASTROINTESTINAL: Abdomen soft, non-tender, nondistended. MUSCULOSKELETAL: Extremities without clubbing, cyanosis, or edema. No obvious deformities. NEUROLOGICAL: Awake and alert. No obvious cranial nerve deficits. Motor grossly within normal limits. Five out of 5 muscle strength in the arms and legs. Normal speech. PSYCHIATRIC: Appropriate mood and affect; insight and judgment normal. Procedures Cardiac catheterization A/P Problem List: (1) NSTEMI (non-ST elevated myocardial infarction) ICD Code: I21.4 Status: Acute Assessment and Plan This is a 46-year-old male smoker who presented to the emergency room because of chest pain. Patient states he developed moderate sharp right sided chest pain scale of 8 out of 10 that lasted for 15 minutes this morning and radiated to bilateral upper extremities associated with shortness of breath, diaphoresis and nausea. Slowly improved without medications. It recurred while he was preparing to go to work prompting ER evaluation. Patient states he's been having on and off exertional chest pain for the past 6 weeks. It is not pleuritic and doesn't feel like heartburn. 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 Denies dizziness and palpitations. New onset A. fib. Check BMP, magnesium, TSH and echocardiogram. Lopressor increased to 50 mg twice a day if heart rate less than 100. Cardizem drip as needed. Continue aspirin [id number] score of 1 ([place]) NSTEMI status post cardiac catheterization. At this time he is pain-free, continue aspirin, Lopressor, nitrates and Lipitor. CABG Tuesday. Risk factor modification. Follow-up A1c. Tobacco cessation Transient low BP secondary to meds. Improved. Nitro paste discontinued. IV fluids as needed . Continue to monitor Grief from recent loss of his mother. Counselled DVT prophylaxis s/p Lovenox. SCDs and early ambulation Discharge Planning Per cardiology and cardiovascular surgery Quinton Alonso MD Oct 10, 2016 12:59
[2016-10-10] MEDS ORDERED: DILTIAZEM INJ 125 MG in SODIUM CHLORIDE 0.9% INJ 100 ML IV PRN (14:00)
[2016-10-10 14:01] LABS: AUTOMATED NEUTROPHIL # 6.9 TH/MM3 (1.8-7.7); BASOPHIL # 0.1 TH/MM3 (0-0.2); BASOPHIL % 0.9 % (0.0-2.0); EOSINOPHIL # 0.3 TH/MM3 (0-0.4); EOSINOPHIL % 3.1 % (0.0-4.0); HEMO FLAGS DIFF FINAL; LYMPH % 22.1 % (9.0-44.0); LYMPHOCYTE # 2.4 TH/MM3 (1.0-4.8); MEAN CELL VOLUME 92.4 FL (80.0-100.0); MEAN CORPUSCULAR HEMOGLOBIN 32.9 PG (27.0-34.0); MEAN CORPUSCULAR HGB CONC 35.6 % (32.0-36.0); MONO % 10.5 % (0.0-8.0); NEUT % 63.4 % (16.0-70.0); PLATELET COUNT 221 TH/MM3 (150-450); RED BLOOD COUNT 4.86 MIL/MM3 (4.50-5.90); RED CELL DISTRIBUTION WIDTH 12.8 % (11.6-17.2); WHITE BLOOD COUNT 10.9 TH/MM3 (4.0-11.0)
[2016-10-10 14:12] LABS: BICARBONATE 26.4 MEQ/L (21.0-32.0); POTASSIUM 4.3 MEQ/L (3.5-5.1)
[2016-10-10] MEDS ORDERED: MAGNESIUM OXIDE 400 MG TAB PO PRN (14:15)
[2016-10-10] MEDS ORDERED: POTASSIUM CHLOR 20 MEQ PREMIX 100 ML IV PRN ×2 (14:15)
[2016-10-10] MEDS ORDERED: MAGNESIUM SULFATE INJ 2 GM in SODIUM CHLORIDE 0.9% INJ 96 ML IV PRN (14:15)
[2016-10-10] MEDS ORDERED: POTASSIUM PHOSPHATE MONOBASIC 500 MG TAB PO PRN (14:15)
[2016-10-10] MEDS ORDERED: SODIUM PHOSPHATE INJ 30 MMOL in SODIUM CHLOR 0.9% 250 ML INJ 240 ML IV PRN (14:15)
[2016-10-10] MEDS ORDERED: POTASSIUM CL 40 MEQ/30 ML LIQ UDC PO/TUBE PRN ×2 (14:15)
[2016-10-10] MEDS ORDERED: POTASSIUM PHOSPHATE MONOBASIC 500 MG TAB PO/TUBE PRN (14:15)
[2016-10-10] MEDS ORDERED: POTASSIUM CHLOR 40 MEQ PREMIX 100 ML IV PRN ×2 (14:15)
[2016-10-10] MEDS ORDERED: POTASSIUM PHOSPHATE INJ 30 MMOL in SODIUM CHLOR 0.9% 250 ML INJ 250 ML IV PRN (14:15)
[2016-10-10] MEDS ORDERED: MAGNESIUM SULFATE INJ 4 GM in SODIUM CHLORIDE 0.9% INJ 92 ML IV PRN (14:15)
[2016-10-11] VITALS (22 sets, daily range): BP systolic 104–134; BP diastolic 49–75; PULSE 57–132; RESP 16–22; TEMP 97.2–98.6; O2SAT 94–100
[2016-10-11] MEDS: ISOSORBIDE MONONITRATE 30 MG TAB PO SCH (06:41)
[2016-10-11] MEDS: ATORVASTATIN 80 MG TAB PO SCH (08:41)
[2016-10-11] MEDS: ASPIRIN 81 MG CHEW TAB PO SCH (08:42)
[2016-10-11] MEDS: DOCUSATE SODIUM 100 MG CAP PO SCH ×2 (08:42→21:00)
[2016-10-11] MEDS: METOPROLOL TARTRATE 50 MG TAB PO SCH ×2 (08:42→21:00)
[2016-10-11] MEDS: ACETAMINOPHEN/HYDROcodone 325 MG/5 MG TAB PO PRN (08:43)
[2016-10-11] MEDS: SODIUM CHLORIDE 0.9% FLUSH 5 ML FLUSH FLUSH SCH ×2 (08:43→21:01)
[2016-10-11] MEDS ORDERED: PNEUMOCOCCAL POLYVALENT INJ 25 MCG/0.5 ML SYR IM ONE (10:00)
[2016-10-11] MEDS ORDERED: METOPROLOL TARTRATE 25 MG TAB PO SCH ×3 (11:15→21:00)
--- NOTE | 2016-10-11 11:22 | PD.CAR.PN ---
CVT Progress Note Subjective/Hospital Course: 46-year-old male smoker who presented to the emergency room because of chest pain. Patient states he developed moderate sharp right sided chest pain scale of 8 out of 10 that lasted for 15 minutes this morning and radiated to bilateral upper extremities associated with shortness of breath, diaphoresis and nausea. Slowly improved without medications. It recurred while he was preparing to go to work prompting ER evaluation. Patient states he's been having on and off exertional chest pain for the past 6 weeks. It is not pleuritic and doesn't feel like heartburn. 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 Denies dizziness and palpitations. No history of CAD, peripheral vascular disease, DVT and pulmonary embolism. He traveled to [facility] 3 weeks ago but denies leg pain. He has intermittent hand, foot pain and lower extremity swelling whenever he drinks last alcohol intake 3 weeks ago. In the emergency department, he was noted to have abnormal EKG(see below) and slightly elevated troponin. cardiac risk factors : positive family history for heart disease and a 36 pack year smoker. cath EF normal prox 90% LAD 10/11 scheduled for surgery in am CABG Objective: GENERAL: SKIN: Warm and dry. HEAD: Normocephalic. EYES: No scleral icterus. No injection or drainage. NECK: Supple, trachea midline. No JVD or lymphadenopathy. CARDIOVASCULAR: Regular rate and rhythm without murmurs, gallops, or rubs. RESPIRATORY: Breath sounds equal bilaterally. No accessory muscle use. GASTROINTESTINAL: Abdomen soft, non-tender, nondistended. MUSCULOSKELETAL: No cyanosis, or edema. BACK: Nontender without obvious deformity. No CVA tenderness. Vital Signs Date Time Temp Pulse Resp B/P Pulse Ox O2 Delivery O2 Flow Rate FiO2 10/11/16 09:20 96 21 10/11/16 08:35 96 Room Air 10/11/16 08:33 98.1 121 16 125/60 96 10/11/16 07:00 101 10/11/16 04:00 98.2 93 18 104/49 96 10/11/16 04:00 93 10/11/16 00:00 86 10/11/16 00:00 86 10/10/16 22:55 21 10/10/16 20:00 97 Room Air 10/10/16 20:00 98 10/10/16 20:00 97.8 96 20 119/84 97 10/10/16 15:00 93 10/10/16 15:00 98.3 93 20 124/79 97 Result Diagram: 10/10/16 1347 10/10/16 1347 (1) NSTEMI (non-ST elevated myocardial infarction) Plan: ASA, BB , statin, imdur for surgery in am (2) Unstable angina (3) Tobacco abuse Plan: smoking cessation Meg Abreu Oct 11, 2016 11:22
[2016-10-11] MEDS ORDERED: INSULIN REGULAR (IV INFUSION) 100 UNITS in SODIUM CHLORIDE 0.9% INJ 100 ML IV SCH (11:30)
[2016-10-11] MEDS ORDERED: CHLORHEXIDINE GLUCONATE 4% SOLN 120 ML BTL TOPICAL SCH (11:30)
[2016-10-11] MEDS ORDERED: SODIUM CHLORIDE 0.9% FLUSH 5 ML FLUSH IV FLUSH PRN (11:30)
[2016-10-11] MEDS ORDERED: PAPAVERINE INJ 60 MG, NITROGLYCERIN INJ 100 MCG, DILTIAZEM INJ 100 MG in SODIUM CHLORID... IRRIGATION SCH (11:30)
[2016-10-11] MEDS ORDERED: VANCOMYCIN INJ 1,000 MG in SODIUM CHLORIDE 0.9% IRR BTL 1,000 ML IRRIGATION SCH (11:30)
[2016-10-11] MEDS ORDERED: PILL SPLITTER OTHER PRN (11:30)
[2016-10-11] MEDS ORDERED: VANCOMYCIN INJ 1,750 MG in SODIUM CHLORID 0.9% 500 ML INJ 500 ML IV SCH (11:30)
--- NOTE | 2016-10-11 11:39 | HHI.PR ---
Subjective Remarks Follow-up Tom dhillon. Denies chest pain and palpitations. For CABG tomorrow. Seen with family. Discussed with RN Objective Vitals Vital Signs Date Time Temp Pulse Resp B/P Pulse Ox O2 Delivery O2 Flow Rate FiO2 10/11/16 09:20 96 21 10/11/16 08:35 96 Room Air 10/11/16 08:33 98.1 121 16 125/60 96 10/11/16 07:00 101 10/11/16 04:00 98.2 93 18 104/49 96 10/11/16 04:00 93 10/11/16 00:00 86 10/11/16 00:00 86 10/10/16 22:55 21 10/10/16 20:00 97 Room Air 10/10/16 20:00 98 10/10/16 20:00 97.8 96 20 119/84 97 10/10/16 15:00 93 10/10/16 15:00 98.3 93 20 124/79 97 I/O 10/10/16 10/10/16 10/10/16 10/11/16 10/11/16 10/11/16 07:00 15:00 23:00 07:00 15:00 23:00 Intake Total 720 ml 2280 ml 3520 ml Output Total 2200 ml 1550 ml 3100 ml Balance -1480 ml 730 ml 420 ml Intake Oral 720 ml 2280 ml 3520 ml IV Total 0 ml Output Urine Total 2200 ml 1550 ml 3100 ml # Bowel Movements 0 3 0 Result Diagram: 10/10/16 1347 10/10/16 1347 Objective Remarks GENERAL: Well-developed, well-nourished in no distress SKIN: Warm and dry. HEAD: Atraumatic. Normocephalic. EYES: Pupils equal and round. No scleral icterus. No injection or drainage. ENT: No nasal bleeding or discharge. Mucous membranes pink and moist. NECK: Trachea midline. No JVD. CARDIOVASCULAR: Irregularly irregular RESPIRATORY: No accessory muscle use. Clear to auscultation. Breath sounds equal bilaterally. GASTROINTESTINAL: Abdomen soft, non-tender, nondistended. MUSCULOSKELETAL: Extremities without clubbing, cyanosis, or edema. No obvious deformities. NEUROLOGICAL: Awake and alert. No obvious cranial nerve deficits. Motor grossly within normal limits. Five out of 5 muscle strength in the arms and legs. Normal speech. PSYCHIATRIC: Appropriate mood and affect; insight and judgment normal. Procedures Cardiac catheterization A/P Problem List: (1) NSTEMI (non-ST elevated myocardial infarction) ICD Code: I21.4 Status: Acute Assessment and Plan This is a 46-year-old male smoker who presented to the emergency room because of chest pain. Patient states he developed moderate sharp right sided chest pain scale of 8 out of 10 that lasted for 15 minutes this morning and radiated to bilateral upper extremities associated with shortness of breath, diaphoresis and nausea. Slowly improved without medications. It recurred while he was preparing to go to work prompting ER evaluation. Patient states he's been having on and off exertional chest pain for the past 6 weeks. It is not pleuritic and doesn't feel like heartburn. He has a [employer] business. Denies dizziness and palpitations. New onset A. fib/flutter. Labs unremarkable. Stable. Lopressor increased to 50 mg twice a day if heart rate less than 100. Cardizem drip as needed. Continue aspirin [id number] score of 1 ([place]). Follow-up echocardiogram NSTEMI status post cardiac catheterization. At this time he is pain-free, continue aspirin, Lopressor, nitrates and Lipitor. CABG tomorrow Tuesday. Risk factor modification. Follow-up A1c 5.4. Tobacco cessation Transient low BP secondary to meds. Improved. Nitro paste discontinued. IV fluids as needed . Continue to monitor Grief from recent loss of his mother. Counselled DVT prophylaxis s/p Lovenox. SCDs and early ambulation Discharge Planning Per cardiology and cardiovascular surgery Quinton Alonso MD Oct 11, 2016 11:39
[2016-10-11] MEDS: ACETAMINOPHEN 325 MG TAB PO PRN (12:49)
[2016-10-11 13:07] LABS: BLOOD, URINE NEG (NEG); GLUCOSE,URINE NEG (NEG); KETONE, URINE NEG (NEG); NITRITE,URINE NEG (NEG); PH, URINE 5.5 (5.0-8.5); SQUAMOUS EPITHELIAL CELL URINE <1 /hpf (0-5); URINE COLOR YELLOW (YELLW/STRAW)
[2016-10-11 13:10] LABS: COMMENT (UR) CULT NOT INDICATED; CULTURE IF INDICATED CULT NOT INDICATED
--- NOTE | 2016-10-11 14:57 | EC ---
Study Study Date:10/11/2016 STUDY CONCLUSIONS SUMMARY - Left ventricle: The cavity size was normal. Wall thickness was normal. Systolic function was normal. The estimated ejection fraction was in the range of 55% to 60%. Wall motion was normal; there were no regional wall motion abnormalities. - Aortic valve: Valve area: 2.3cm^2(VTI). Valve area: 2.07cm^2 (Vmax). If LV function is below 40, please consider prescribing an ACEI or ARB or document rationale for non-use. PROCEDURE DATA STUDY STATUS: Elective. Procedure: Transthoracic echocardiography. Image quality was good. Scanning was performed from the parasternal, apical, and subcostal acoustic windows. Study completion: The patient tolerated the procedure well. Transthoracic echocardiography. M-mode, complete 2D, complete spectral Doppler, and color Doppler. Height: Height: 71in. Weight: Weight: 240.5lb. Body mass index: BMI: 33.6kg/m^2. Body surface area: BSA: 2.28m^2. Patient status: Inpatient. CARDIAC ANATOMY LEFT VENTRICLE: The cavity size was normal. Wall thickness was normal. Systolic function was normal. The estimated ejection fraction was in the range of 55% to 60%. Wall motion was normal; there were no regional wall motion abnormalities. AORTIC VALVE: Trileaflet; normal thickness leaflets. Doppler: Transvalvular velocity was within the normal range. There was no stenosis. No regurgitation. Valve area: 2.3cm^2(VTI). Indexed valve area: 1.01cm^2/m^2 (VTI). Valve area: 2.07cm^2 (Vmax). Indexed valve area: 0.91cm^2/m^2 (Vmax). Mean gradient: 3mm Hg (S). AORTA: Aortic root: The aortic root was normal in size. MITRAL VALVE: Structurally normal valve. Doppler: Transvalvular velocity was within the normal range. There was no evidence for stenosis. Trace regurgitation. LEFT ATRIUM: The atrium was normal in size. RIGHT VENTRICLE: The cavity size was normal. Wall thickness was normal. PULMONIC VALVE: Doppler: Transvalvular velocity was within the normal range. There was no evidence for stenosis. No regurgitation. TRICUSPID VALVE: Structurally normal valve. Doppler: Transvalvular velocity was within the normal range. Trace regurgitation. PULMONARY ARTERY: The main pulmonary artery was normal-sized. Systolic pressure was within the normal range. RIGHT ATRIUM: The atrium was normal in size. PERICARDIUM: There was no pericardial effusion. SYSTEMIC VEINS: Inferior vena cava: The vessel was normal in size. Patient weight: 240.5lb _Ejection fraction:_ 65-75% _Fractional shortening:_ 32% up to 5Kg 5-11.5Kg 11.6-22.9Kg 23-45Kg 45-57Kg Aortic Root 7-13 <17 13-22 17-27 17-27 LA diam 6-13 <23 24-38 33-47 37-40 RVID 10-17 7-15 7-15 7-18 8-17 LVIDd 12-22 <32 24-38 33-47 37-40 LVPW 2-4 3-6 5-7 6-8 7-8 IVS 2-4 3-6 5-7 6-8 7-8 BASIC MEASUREMENTS ADULT NORMAL Left ventricle LV internal dimension, ED, chordal *55.4 mm 43-52 level, PLAX LV internal dimension, ES, chordal 37.3 mm 23-38 level, PLAX Fractional shortening, chordal level, 33 % >29 PLAX LV posterior wall thickness, ED 8.21 mm IVS/LVPW ratio, ED 0.99 <1.3 Ventricular septum Septal thickness, ED 8.13 mm Aortic valve Leaflet separation 24 mm 15-26 Aorta Root diameter, ED 33 mm Left atrium Anterior-posterior dimension 33 mm Anterior-posterior dimension index 1.45 cm/m^2 <2.2 BASIC MEASUREMENTS ADULT NORMAL Aortic valve Leaflet separation 24 mm 15-26 DOPPLER MEASUREMENTS ADULT NORMAL Aortic valve Peak velocity, S 103 cm/s Mean velocity, S 77.4 cm/s VTI, S 14.3 cm Mean gradient, S 3 mm Hg Valve area, VTI 2.3 cm^2 Valve area index, VTI 1.01 cm^2/m^2 Valve area, Vmax 2.07 cm^2 Valve area index, Vmax 0.91 cm^2/m^2 Mitral valve Peak E-wave velocity 58.1 cm/s Tricuspid valve Regurgitant peak velocity 188 cm/s Peak RV-RA gradient, S 14 mm Hg Maximal regurgitant velocity 188 cm/s Pulmonic valve Peak velocity, S 56.4 cm/s LEGEND: Mean values are shown as u=mean value. Asterisk (*) bravo values outside specified normal range. Prepared and signed by Gil Bonilla [id number]
--- NOTE | 2016-10-11 15:57 | RADRPT ---
EXAM DATE/TIME: 10/11/2016 11:49 [facility] COMPARISON: No previous studies available for comparison. INDICATIONS : Preop cardiac surgery. MEDICAL HISTORY : Peripheral vascular disease. Deep venous thrombosis. Palpitations. Sleep apne a. Anxiety. Chest pain. SOB. CAD. Pulmonary embolism. SURGICAL HISTORY : Cardiac cath. ENCOUNTER: Initial ACUITY: 2 days PAIN SCORE: 0/10 LOCATION: Bilateral neck PEAK SYSTOLIC VELOCITIES (cm/sec): ICA/CCA RATIO: Right: 0.4 Left: 0.4 ICA: Right: 51 Left: 51 CCA: Right: 116 Left: 141 ECA: Right: 134 Left: 103 VERTEBRAL: Right: 43 antegrade Left: 39 antegrade Elevated flow velocities and ICA/CCA ratios have been found to correlate with increased degrees of vessel stenosis, calculated as percentage of diameter relative to a normal segment of distal ICA/CCA FINDINGS: Minimal heterogeneous plaque is identified in both carotid bifurcations. RIGHT CAROTID: No significant stenosis is visualized. The waveforms are within normal limits. LEFT CAROTID: No significant stenosis is visualized. The waveforms are within normal limits. VERTEBRAL ARTERIES: Antegrade flow is seen in both vertebral arteries. MISCELLANEOUS: None. CONCLUSION: Minimal bilateral carotid plaques. No evidence of hemodynamically significant stenosis. Antegrade flow both vertebral arteries. Grant Holden MD on October 11, 2016 at 15:52 Board Certified Radiologist. This report was verified electronically.
[2016-10-11] MEDS: SODIUM CHLORIDE 0.9% FLUSH 5 ML FLUSH IV FLUSH SCH (21:00)
[2016-10-12] VITALS (32 sets, daily range): BP systolic 114–137; BP diastolic 55–88; PULSE 51–76; RESP 16–18; TEMP 97.7–98.7; O2SAT 98–99
[2016-10-12] MEDS ORDERED: INSULIN HUMAN REGULAR 1,000 UNITS/10 ML VIAL SQ PRN (03:15)
[2016-10-12] MEDS: ISOSORBIDE MONONITRATE 30 MG TAB PO SCH (06:30)
--- NOTE | 2016-10-12 07:37 | HHI.PR ---
Subjective Remarks F/U CAD. Doing ok little nervous awaiting CABG at 12 nn dw RN Objective Vitals Vital Signs Date Time Temp Pulse Resp B/P Pulse Ox O2 Delivery O2 Flow Rate FiO2 10/12/16 06:01 56 10/12/16 05:00 55 10/12/16 04:00 53 10/12/16 03:15 98.0 67 18 114/55 98 10/12/16 03:01 52 10/12/16 02:00 56 10/12/16 01:00 55 10/12/16 00:01 51 10/11/16 23:56 94 21 10/11/16 23:15 98.6 63 22 123/58 100 10/11/16 23:00 57 10/11/16 22:01 64 10/11/16 21:00 77 10/11/16 20:30 97.2 74 18 134/73 98 10/11/16 20:30 98 Room Air 10/11/16 20:00 79 10/11/16 19:00 78 10/11/16 18:10 82 10/11/16 17:00 67 10/11/16 16:00 72 10/11/16 15:30 97.5 69 16 133/71 100 10/11/16 15:00 62 10/11/16 14:00 132 10/11/16 13:00 123 10/11/16 11:49 110 10/11/16 11:48 97.6 106 16 123/75 97 10/11/16 09:20 96 21 10/11/16 08:35 96 Room Air 10/11/16 08:33 98.1 121 16 125/60 96 I/O 10/11/16 10/11/16 10/11/16 10/12/16 10/12/16 10/12/16 07:00 15:00 23:00 07:00 15:00 23:00 Intake Total 3520 ml 480 ml 720 ml Output Total 3100 ml 300 ml Balance 420 ml 480 ml 420 ml Intake Oral 3520 ml 480 ml 720 ml Output Urine Total 3100 ml 300 ml # Voids 1 2 # Bowel Movements 0 0 0 Result Diagram: 10/10/16 1347 10/10/16 1347 Imaging Last Impressions Carotid Artery Ultrasound 10/11/16 0000 Signed Impressions: Service Date/Time: Tuesday, October 11, 2016 11:49 - CONCLUSION: Minimal bilateral carotid plaques. No evidence of hemodynamically significant stenosis. Antegrade flow both vertebral arteries. Grant Holden MD Chest X-Ray 10/08/16 0928 Signed Impressions: Service Date/Time: Saturday, October 08, 2016 09:46 - CONCLUSION: Normal examination. Milind Mahajan MD Objective Remarks GENERAL: Well-developed, well-nourished in no distress SKIN: Warm and dry. HEAD: Atraumatic. Normocephalic. EYES: Pupils equal and round. No scleral icterus. No injection or drainage. ENT: No nasal bleeding or discharge. Mucous membranes pink and moist. NECK: Trachea midline. No JVD. CARDIOVASCULAR: RRR RESPIRATORY: No accessory muscle use. Clear to auscultation. Breath sounds equal bilaterally. GASTROINTESTINAL: Abdomen soft, non-tender, nondistended. MUSCULOSKELETAL: Extremities without clubbing, cyanosis, or edema. No obvious deformities. NEUROLOGICAL: Awake and alert. No obvious cranial nerve deficits. Motor grossly within normal limits. Five out of 5 muscle strength in the arms and legs. Normal speech. PSYCHIATRIC: Appropriate mood and affect; insight and judgment normal. Procedures Cardiac catheterization A/P Problem List: (1) NSTEMI (non-ST elevated myocardial infarction) ICD Code: I21.4 Status: Acute Assessment and Plan This is a 46-year-old male smoker who presented to the emergency room because of chest pain. Patient states he developed moderate sharp right sided chest pain scale of 8 out of 10 that lasted for 15 minutes this morning and radiated to bilateral upper extremities associated with shortness of breath, diaphoresis and nausea. Slowly improved without medications. It recurred while he was preparing to go to work prompting ER evaluation. Patient states he's been having on and off exertional chest pain for the past 6 weeks. It is not pleuritic and doesn't feel like heartburn. He has a [employer] business. Denies dizziness and palpitations. New onset A. fib/flutter. Labs unremarkable. ECHO WNL. Stable n SR. Lopressor increased to 50 mg twice a day. Cardizem drip as needed. Continue aspirin [id number] score of 1 (NM). NSTEMI status post cardiac catheterization. At this time he is pain-free, continue aspirin, Lopressor, nitrates and Lipitor. CABG today. Risk factor modification. Follow-up A1c 5.4. Tobacco cessation Transient low BP secondary to meds. Improved. Nitro paste discontinued. IV fluids as needed . Continue to monitor Grief from recent loss of his mother. Counselled DVT prophylaxis s/p Lovenox. SCDs and early ambulation Discharge Planning Per cardiology and cardiovascular surgery Quinton Alonso MD Oct 12, 2016 07:37
[2016-10-12] MEDS: SODIUM CHLORIDE 0.9% FLUSH 5 ML FLUSH IV FLUSH SCH ×2 (08:10→21:00)
[2016-10-12] MEDS: ASPIRIN 81 MG CHEW TAB PO SCH (08:14)
[2016-10-12] MEDS: ATORVASTATIN 80 MG TAB PO SCH (08:14)
[2016-10-12] MEDS: METOPROLOL TARTRATE 50 MG TAB PO SCH ×2 (08:14→20:24)
[2016-10-12] MEDS: DOCUSATE SODIUM 100 MG CAP PO SCH ×2 (08:14→20:24)
[2016-10-12] MEDS: SODIUM CHLORIDE 0.9% FLUSH 5 ML FLUSH FLUSH SCH ×2 (08:15→20:25)
--- NOTE | 2016-10-12 09:51 | PD.CAR.PN ---
CVT Progress Note Subjective/Hospital Course: 46-year-old male smoker who presented to the emergency room because of chest pain. Patient states he developed moderate sharp right sided chest pain scale of 8 out of 10 that lasted for 15 minutes this morning and radiated to bilateral upper extremities associated with shortness of breath, diaphoresis and nausea. Slowly improved without medications. It recurred while he was preparing to go to work prompting ER evaluation. Patient states he's been having on and off exertional chest pain for the past 6 weeks. It is not pleuritic and doesn't feel like heartburn. 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 Denies dizziness and palpitations. No history of CAD, peripheral vascular disease, DVT and pulmonary embolism. He traveled to [facility] 3 weeks ago but denies leg pain. He has intermittent hand, foot pain and lower extremity swelling whenever he drinks last alcohol intake 3 weeks ago. In the emergency department, he was noted to have abnormal EKG(see below) and slightly elevated troponin. cardiac risk factors : positive family history for heart disease and a 36 pack year smoker. cath EF normal prox 90% LAD 10/11 scheduled for surgery in am CABG 10/12 doing well surgery rescheduled for am Objective: GENERAL: SKIN: Warm and dry. HEAD: Normocephalic. EYES: No scleral icterus. No injection or drainage. NECK: Supple, trachea midline. No JVD or lymphadenopathy. CARDIOVASCULAR: Regular rate and rhythm without murmurs, gallops, or rubs. RESPIRATORY: Breath sounds equal bilaterally. No accessory muscle use. GASTROINTESTINAL: Abdomen soft, non-tender, nondistended. MUSCULOSKELETAL: No cyanosis, or edema. BACK: Nontender without obvious deformity. No CVA tenderness. Vital Signs Date Time Temp Pulse Resp B/P Pulse Ox O2 Delivery O2 Flow Rate FiO2 10/12/16 07:58 98 21 10/12/16 06:01 56 10/12/16 05:00 55 10/12/16 04:00 53 10/12/16 03:15 98.0 67 18 114/55 98 10/12/16 03:01 52 10/12/16 02:00 56 10/12/16 01:00 55 10/12/16 00:01 51 10/11/16 23:56 94 21 10/11/16 23:15 98.6 63 22 123/58 100 10/11/16 23:00 57 10/11/16 22:01 64 10/11/16 21:00 77 10/11/16 20:30 97.2 74 18 134/73 98 10/11/16 20:30 98 Room Air 10/11/16 20:00 79 10/11/16 19:00 78 10/11/16 18:10 82 10/11/16 17:00 67 10/11/16 16:00 72 10/11/16 15:30 97.5 69 16 133/71 100 10/11/16 15:00 62 10/11/16 14:00 132 10/11/16 13:00 123 10/11/16 11:49 110 10/11/16 11:48 97.6 106 16 123/75 97 Result Diagram: 10/10/16 1347 10/10/16 1347 (1) NSTEMI (non-ST elevated myocardial infarction) Plan: ASA, BB , statin, imdur for surgery today (2) Unstable angina (3) Tobacco abuse Plan: smoking cessation (4) Atrial fibrillation Meg Abreu Oct 12, 2016 09:51
[2016-10-12] MEDS ORDERED: SODIUM CHLORID 0.9% 500 ML IV SCH (12:00)
[2016-10-12] MEDS ORDERED: LACTATED RINGER'S 1000 ML IV SCH (12:00)
[2016-10-12] MEDS: ACETAMINOPHEN 325 MG TAB PO PRN (12:21)
--- NOTE | 2016-10-12 22:43 | RADRPT ---
EXAM DATE/TIME: 10/12/2016 22:29 [facility] COMPARISON: No previous studies available for comparison. INDICATIONS : Chest pain. MEDICAL HISTORY : Peripheral vascular disease. Deep venous thrombosis. Palpitations, Sleep apnea, Anxiety, CAD, PE SURGICAL HISTORY : Coronary artery stent. ENCOUNTER: Subsequent ACUITY: 1 week PAIN SCORE: 1/10 LOCATION: Bilateral chest FINDINGS: PA and lateral views of the chest demonstrate the lungs to be symmetrically aerated without evidence of mass, infiltrate or effusion. The cardiomediastinal contours are unremarkable. Osseous structure s are intact. CONCLUSION: Normal examination. Anjel Yip MD on October 12, 2016 at 22:41 Board Certified Radiologist. This report was verified electronically.
[2016-10-13] VITALS (20 sets, daily range): BP systolic 97–150; BP diastolic 50–62; PULSE 49–84; RESP 9–20; TEMP 95.9–98; O2SAT 94–99
[2016-10-13] MEDS ORDERED: EPINEPHrine HCL (1:10,000) 1 MG/10 ML SYRINGE IV ONE (05:00)
[2016-10-13] MEDS ORDERED: AMINOCAPROIC ACID INJ 250 MG/ML 20 ML VIAL IV ONE (05:00)
[2016-10-13] MEDS ORDERED: HEPARIN SODIUM - SQ 10,000 UNITS/ML VIAL SQ ONE (05:00)
[2016-10-13] MEDS ORDERED: ACETAMINOPHEN 1000 MG/100 ML VIAL IV ONE (05:00)
[2016-10-13] MEDS ORDERED: MAGNESIUM SULFATE 1000 MG/2 ML VIAL (PED) IV ONE (05:00)
[2016-10-13] MEDS ORDERED: DEXTROSE 5% IN WATER 100ML INJ 100 ML IV ONE (05:00)
[2016-10-13] MEDS ORDERED: SODIUM BICARBONATE 8.4% INJ 50 MEQ/50 ML SYR IV ONE (05:00)
[2016-10-13] MEDS ORDERED: DEXMEDETOMIDINE INJ 50 ML IV ONE (05:00)
[2016-10-13] MEDS ORDERED: PROPOFOL 1000 MG/100 ML INJ 100 ML IV ONE (05:00)
[2016-10-13] MEDS ORDERED: NITROGLYCERIN-DEXTROSE INJ 250 ML IV ONE (05:00)
[2016-10-13] MEDS ORDERED: VECURONIUM BROMIDE 10 MG VIAL IV ONE ×2 (05:00→14:18)
[2016-10-13] MEDS: ISOSORBIDE MONONITRATE 30 MG TAB PO SCH (06:26)
[2016-10-13] MEDS ORDERED: PAPAVERINE INJ 60 MG/2 ML VIAL ONE (07:07)
[2016-10-13] MEDS ORDERED: ceFAZolin 2 GM PREMIX 50 ML ONE (07:07)
[2016-10-13] MEDS ORDERED: HEPARIN SODIUM - SQ 10,000 UNITS/ML VIAL ONE (07:07)
[2016-10-13] MEDS ORDERED: VANCOMYCIN HCL 1000 MG VIAL ONE (07:55)
--- NOTE | 2016-10-13 08:22 | HHI.PR ---
Subjective Remarks Follow-up CAD. Nervous awaiting CABG. Denies chest pain. Seen with family. Discussed with RN. Telemetry shows sinus rhythm Objective Vitals Vital Signs Date Time Temp Pulse Resp B/P Pulse Ox O2 Delivery O2 Flow Rate FiO2 10/13/16 08:03 99 10/13/16 06:01 50 10/13/16 05:00 52 10/13/16 04:01 52 10/13/16 03:15 97.9 64 16 120/60 98 10/13/16 03:00 50 10/13/16 02:00 53 10/13/16 01:00 49 10/13/16 00:01 56 10/12/16 23:15 97.7 68 18 137/81 98 10/12/16 23:00 55 10/12/16 22:01 58 10/12/16 21:00 58 10/12/16 20:29 98 21 10/12/16 20:15 98.7 60 18 127/88 99 10/12/16 20:15 99 Room Air 10/12/16 20:00 61 10/12/16 19:00 61 10/12/16 18:13 67 10/12/16 17:09 57 10/12/16 16:01 59 10/12/16 15:25 98.0 63 16 124/66 99 10/12/16 15:00 56 10/12/16 14:00 57 10/12/16 13:00 63 10/12/16 12:14 97.7 73 18 118/69 98 10/12/16 12:00 63 10/12/16 11:00 67 10/12/16 10:00 54 10/12/16 09:00 59 I/O 10/12/16 10/12/16 10/12/16 10/13/16 10/13/16 10/13/16 07:00 15:00 23:00 07:00 15:00 23:00 Intake Total 720 ml 420 ml 240 ml Output Total 300 ml 900 ml 700 ml Balance 420 ml -480 ml -460 ml Intake Oral 720 ml 420 ml 240 ml Output Urine Total 300 ml 900 ml 700 ml # Voids 2 2 # Bowel Movements 0 0 0 Result Diagram: 10/10/16 1347 10/10/16 1347 Objective Remarks GENERAL: Well-developed, well-nourished in no distress SKIN: Warm and dry. HEAD: Atraumatic. Normocephalic. EYES: Pupils equal and round. No scleral icterus. No injection or drainage. ENT: No nasal bleeding or discharge. Mucous membranes pink and moist. NECK: Trachea midline. No JVD. CARDIOVASCULAR: RRR RESPIRATORY: No accessory muscle use. Clear to auscultation. Breath sounds equal bilaterally. GASTROINTESTINAL: Abdomen soft, non-tender, nondistended. MUSCULOSKELETAL: Extremities without clubbing, cyanosis, or edema. No obvious deformities. NEUROLOGICAL: Awake and alert. No obvious cranial nerve deficits. Motor grossly within normal limits. Five out of 5 muscle strength in the arms and legs. Normal speech. Nonfocal PSYCHIATRIC: Appropriate mood and affect; insight and judgment normal. Procedures Cardiac catheterization A/P Problem List: (1) NSTEMI (non-ST elevated myocardial infarction) ICD Code: I21.4 Status: Acute Assessment and Plan This is a 46-year-old male smoker who presented to the emergency room because of chest pain. Patient states he developed moderate sharp right sided chest pain scale of 8 out of 10 that lasted for 15 minutes this morning and radiated to bilateral upper extremities associated with shortness of breath, diaphoresis and nausea. Slowly improved without medications. It recurred while he was preparing to go to work prompting ER evaluation. Patient states he's been having on and off exertional chest pain for the past 6 weeks. It is not pleuritic and doesn't feel like heartburn. He has a [employer] business. Denies dizziness and palpitations. New onset A. fib/flutter. Labs unremarkable. ECHO WNL. Stable n SR. Lopressor increased to 50 mg twice a day. Cardizem drip as needed. Continue aspirin [id number] score of 1 (LA). NSTEMI status post cardiac catheterization. At this time he is pain-free, continue aspirin, Lopressor, nitrates and Lipitor. CABG today. Risk factor modification. Follow-up A1c 5.4. Tobacco cessation Transient low BP secondary to meds. Improved. Nitro paste discontinued. IV fluids as needed . Continue to monitor Grief from recent loss of his mother. Counselled DVT prophylaxis s/p Lovenox. SCDs and early ambulation Discharge Planning Per cardiology and cardiovascular surgery Quinton Alonso MD Oct 13, 2016 08:22
[2016-10-13] MEDS: DOCUSATE SODIUM 100 MG CAP PO SCH ×2 (09:00→20:46)
[2016-10-13] MEDS: ATORVASTATIN 80 MG TAB PO SCH (09:00)
[2016-10-13] MEDS: METOPROLOL TARTRATE 50 MG TAB PO SCH ×2 (09:00→21:00)
[2016-10-13] MEDS ORDERED: METOPROLOL TARTRATE 25 MG TAB PO ONE (09:15)
[2016-10-13] MEDS ORDERED: BUPIVACAINE LIPOSO PF 1.3% INJ 20 ML, DEXAMETHASONE INJ 4 MG in SODIUM CHLORIDE 0.9% IN... PERIART SCH (09:45)
[2016-10-13] MEDS ORDERED: BUPIVACAINE LIPOSOME PF 1.3% 20 ML VIAL INFIL ONE (11:51)
[2016-10-13] MEDS ORDERED: RESP: ALBUTEROL CONC 2.5 MG/0.5 ML NEB ONE (12:10)
[2016-10-13] MEDS ORDERED: DOBUTamine PREMIX DRIP 250 ML IV SCH (12:36)
[2016-10-13] MEDS ORDERED: LACTATED RINGER'S 1000 ML INJ 500 ML IV PRN (12:36)
[2016-10-13] MEDS ORDERED: SODIUM CHLORIDE 0.9% FLUSH 5 ML FLUSH IV FLUSH PRN (12:45)
[2016-10-13] MEDS ORDERED: MAGNESIUM SULFATE INJ 2 GM in SODIUM CHLORIDE 0.9% INJ 100 ML IV PRN ×4 (12:45)
[2016-10-13] MEDS ORDERED: POTASSIUM CHLOR 20 MEQ PREMIX 100 ML IV PRN ×3 (12:45)
[2016-10-13] MEDS ORDERED: CLEVIDIPINE INJ 50 ML IV SCH (12:45)
[2016-10-13] MEDS ORDERED: EPINEPHrine (1:1000) INJ 4 MG in DEXTROSE 5% IN WATER INJ 246 ML IV SCH ×2 (12:45)
[2016-10-13] MEDS ORDERED: MORPHINE SULFATE 4 MG/ML INJ IV PRN (12:45)
[2016-10-13] MEDS ORDERED: ACETAMINOPHEN 325 MG TAB PO PRN (12:45)
[2016-10-13] MEDS ORDERED: INSULIN REGULAR (IV INFUSION) 100 UNITS in SODIUM CHLORIDE 0.9% INJ 99 ML IV SCH (12:45)
[2016-10-13] MEDS ORDERED: ACETAMINOPHEN 650 MG SUPP RECTAL PRN (12:45)
[2016-10-13] MEDS ORDERED: METOPROLOL TARTRATE 5 MG/5 ML VIAL IV PUSH PRN (12:45)
[2016-10-13] MEDS ORDERED: DEXTROSE 50% IN WATER 50 ML VIAL(D50) IV PUSH PRN (12:45)
[2016-10-13] MEDS ORDERED: PHENYLEPHRINE INJ 40 MG in DEXTROSE 5% IN WATE 500 ML INJ 496 ML IV SCH ×2 (12:45)
[2016-10-13] MEDS ORDERED: NITROGLYCERIN-DEXTROSE INJ 250 ML IV SCH (12:45)
[2016-10-13] MEDS ORDERED: MEPERIDINE HCL 25 MG/ML VIAL IV PRN (12:45)
[2016-10-13] MEDS ORDERED: CALCIUM CHLORIDE 10% 1 GRAM/10 ML VIAL IV PRN (12:45)
[2016-10-13] MEDS ORDERED: ONDANSETRON HCL 4 MG/2 ML VIAL IV PUSH PRN (12:45)
[2016-10-13] MEDS ORDERED: CALCIUM CHLORIDE INJ 1 GM in SODIUM CHLORIDE 0.9% INJ 100 ML IV PRN (12:45)
[2016-10-13] MEDS ORDERED: DEXMEDETOMIDINE INJ 50 ML IV SCH (12:45)
[2016-10-13] MEDS ORDERED: DOPamine INJ PREMIX 500 ML IV SCH (12:45)
[2016-10-13] MEDS ORDERED: POTASSIUM CHLORIDE 20 MEQ CONTROLLED RELEASE TAB PO PRN ×2 (12:45)
[2016-10-13] MEDS ORDERED: hydrALAZINE HCL 20 MG/ML VIAL IV PRN (12:45)
[2016-10-13] MEDS ORDERED: ALBUMIN HUMAN 5% 12.5 GM/250 ML BOTTLE IV PRN (12:45)
[2016-10-13] MEDS ORDERED: fentaNYL DRIP 250 ML ONE (13:02)
[2016-10-13] MEDS ORDERED: Post-op Orders (for Pharmacy) MISC OTHER ONE (13:10)
--- NOTE | 2016-10-13 13:21 | PD.OP ---
cc: Cameron Morel MD; Aaliyah Leon MD; Francisco Javier Fountain MD Operative Report Date of Surgery: Oct 13, 2016 Preoperative Diagnosis: Postoperative Diagnosis: Procedure: 1. Minimally Invasive Coronary Artery Bypass Grafting x 1 (MIDCAB) with LANDIS to LAD 2. Intraoperative Vein Mapping 3. Intercostal Nerve Block . Surgeon: Cameron Morel Housefellow(s): Katie Brenner Operation and Findings: PREOPERATIVE DIAGNOSES 1. Coronary Artery Disease 2. COPD POSTOPERATIVE DIAGNOSES Same SURGICAL PROCEDURE 1. Minimally Invasive Coronary Artery Bypass Grafting x 1 (MIDCAB) with LANDIS to LAD 2. Intraoperative Vein Mapping 3. 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 DIGITAL CONTENT SPECIALIST Dejuan Mckeon CRNA, Issac Orona MD PREPARATION ChloraPrep. NEEDLE, SPONGE AND INSTRUMENT COUNT Correct. DRAINS 28 Fr Chest Tube. COMPLICATIONS None. INDICATIONS The patient is a 46-year-old with chest pain and CAD, presenting for surgical correction of the above pathology. DESCRIPTION OF PROCEDURE The patient was brought to the operating room and placed supine on the OR table. Intraoperative vein mapping was performed and revealed suitable-caliber conduit in bilateral lower extremities. Following the induction of adequate general double lumen endotracheal anesthesia and placement of appropriate monitoring devices, the patient was then prepped and draped in the standard sterile fashion. The patient was positioned supine with the left chest slightly bumped up using an inflatable balloon. A left anterior mini-thoracotomy (6 cm) was then performed in the 4th ICS mid- clavicular line and carried down to the pleura. The left pleural space was entered. Using the Medtronic Thoratrak retractor, the left internal mammary artery (LANDIS) was dissected free as a pedicle from the posterior sternal table. The entire length from the innominate vein to its bifurcation was harvested. The patient was systemically heparinized and anticoagulation monitored by serial ACT measurements. The pericardium was then opened longitudinally over the anterior wall. Stay sutures were placed and the heart exposed. The LAD was identified coursing trans-apically and isolated. At this point the LANDIS was anastomosed to the mid LAD in an end-to-side fashion in a beating heart manner using the Kickit Withopus NS stabilizer and a running 7-0 Prolene stitch. The anastomosis was inspected and appeared to be hemostatic and patent with triphasic flow via doppler evaluation. Protamine was given. The pericardium was reapproximated with interrupted Vicryl sutures. The length of the LANDIS graft as well as the harvest sites were inspected and assured to be hemostatic. Intercostal nerve block was performed using Exparel at the level of the incision as well as two rib spaces above and below. A 28 Fr chest tube was placed in the pleural space. The intercostal space was approximated with 2 pericostal sutures of #1 Vicryl. The musculo-fascial layer was then closed in 2 layers. The skin was reapproximated with subcuticular stitch and Dermabond. The patient tolerated the procedure well and was transferred to CVICU in stable condition. Cameron Morel MD Oct 13, 2016 13:21
[2016-10-13] MEDS ORDERED: RESP: ALBUTEROL 2.5 MG/IPRATROPIUM 0.5 MG NEB (PRN) NEB (13:45)
[2016-10-13] MEDS ORDERED: RESP: RACEPINEPHRINE 2.25% 0.5 ML NEB NEB PRN (13:45)
[2016-10-13] MEDS: ACETAMINOPHEN 1000 MG/100 ML VIAL IV SCH ×2 (14:00→20:06)
[2016-10-13] MEDS ORDERED: MIDAZOLAM HCL 5 MG/5 ML VIAL ONE (14:13)
[2016-10-13] MEDS ORDERED: fentaNYL CITRATE 1000 MCG/20 ML VIAL ONE (14:13)
[2016-10-13] MEDS: RESP: ALBUTEROL 2.5 MG/IPRATROPIUM 0.5 MG NEB (SCH) NEB ×2 (14:15→21:33)
[2016-10-13] MEDS ORDERED: PROPOFOL 500 MG/50 ML BTL IV ONE (14:18)
[2016-10-13] MEDS ORDERED: SODIUM CHLORID 0.9% 500 ML INJ 500 ML IV ONE (14:18)
[2016-10-13] MEDS ORDERED: NORMOSOL R INJ 1,000 ML IV ONE (14:18)
[2016-10-13] MEDS ORDERED: PROTAMINE SULFATE 250 MG/25 ML VIAL IV ONE (14:22)
[2016-10-13] MEDS: KETOROLAC TROMETHAMINE 30 MG/ML (IVP) VIAL IV PUSH PRN ×2 (14:26→21:10)
--- NOTE | 2016-10-13 15:07 | RADRPT ---
EXAM DATE/TIME: 10/13/2016 13:47 [facility] COMPARISON: CHEST SINGLE AP, October 08, 2016, 9:46. INDICATIONS: Eval heart and lungs post CABG MEDICAL HISTORY: Deep venous thrombosis. Cardiovascular disease. Vascular Disease, Palpitations, Sleep Apnea SURGICAL HISTORY: Coronary artery stent. CABG. ENCOUNTER: Subsequent ACUITY: 2 days PAIN SCORE: Non-responsive. LOCATION: Chest FINDINGS: ET tube, nasogastric tube, central venous catheter and left chest tube are in good position. Minimal subcutaneous emphysema is present. Right lung is clear. Heart and pulmonary vascularity are normal . CONCLUSION: Support apparatus including left chest tube in good position without pneumothorax. Dada Roy MD FACR on October 13, 2016 at 14:47 Board Certified Radiologist. This report was verified electronically.
[2016-10-13] MEDS: VANCOMYCIN INJ 1,000 MG in SODIUM CHLOR 0.9% 250 ML INJ 250 ML IV SCH (20:45)
[2016-10-13] MEDS: AMIODARONE 200 MG TAB PO SCH (20:46)
[2016-10-13] MEDS: SODIUM CHLORIDE 0.9% FLUSH 5 ML FLUSH IV FLUSH SCH (20:47)
--- NOTE | 2016-10-13 22:09 | MA ---
cc: MICHAELLE DEVLIN DATE 10/08/2016 INDICATION Non-ST elevation myocardial infarction, class IV angina. This procedure is urgent. PROCEDURE PERFORMED 1. Retrograde left heart catheterization with left ventriculography and selective coronary angiography. 2. Angiography of the left internal mammary artery ACCESS SITE Right femoral artery. EQUIPMENT USED 5 Telugu pigtail catheter, 5 Telugu JL4 and AR modified coronary artery catheters. MEDICATIONS 1. Versed. 2. IV Fentanyl. 3. IV nitroglycerine IC. CONTRAST Visipaque 145 cc. COMPLICATIONS None. METHOD OF HEMOSTASIS Sheath left in place. RESULTS HEMODYNAMICS Heart rate 70 beats per minute Left ventricular end-diastolic pressure 9 mmHg Left ventricle 100/9 Aorta 100/60/80 LEFT VENTRICULOGRAPHY Ejection fraction 60%. Wall motion normal. No mitral regurgitation. CORONARY ANGIOGRAPHY Left main coronary artery patent. There was evidence of spasm in the left main coronary artery which improved with IC nitroglycerine. Left anterior descending artery has 90% ostial stenosis and 30% stenosis in the mid portion. D-1 patent. Left circumflex artery patent. OM-1 has 20% stenosis in the mid portion. Right coronary artery is a dominant vessel which is patent. PDA patent. PLV patent. Left subclavian artery and left internal mammary artery were patent. DIAGNOSES 1. Severe single vessel coronary artery disease with 90% ostial stenosis of the left anterior descending artery. 2. Preserved left ventricular systolic function. DISPOSITION Mr. Freedman will be monitored on telemetry after his procedure. We will consult CT surgery for coronary artery bypass. We will continue therapy for angina and aggressive modification of his cardiac risk factors. MD MYKEL Eugene/KK /5:30 PM /9:49 PM [facility]WA
[2016-10-14] VITALS (18 sets, daily range): BP systolic 117–132; BP diastolic 53–80; PULSE 63–138; RESP 14–23; TEMP 98.2–99.3; O2SAT 94–96
[2016-10-14] MEDS: oxyCODONE/ACETAMINOPHEN 5 MG/325 MG TAB PO PRN ×7 (01:06→23:52)
[2016-10-14] MEDS: ACETAMINOPHEN 1000 MG/100 ML VIAL IV SCH ×2 (02:00→08:10)
[2016-10-14] MEDS: RESP: ALBUTEROL 2.5 MG/IPRATROPIUM 0.5 MG NEB (SCH) NEB (02:58)
[2016-10-14] MEDS: PANTOPRAZOLE SOD 40 MG DELAYED RELEASE TAB PO SCH (05:42)
[2016-10-14 05:47] LABS: HEMATOCRIT 36.9 % (39.0-51.0); MEAN CELL VOLUME 92.9 FL (80.0-100.0); MEAN CORPUSCULAR HEMOGLOBIN 32.4 PG (27.0-34.0); MEAN CORPUSCULAR HGB CONC 34.9 % (32.0-36.0); PLATELET COUNT 196 TH/MM3 (150-450); RED BLOOD COUNT 3.97 MIL/MM3 (4.50-5.90); RED CELL DISTRIBUTION WIDTH 12.9 % (11.6-17.2); REVIEW FLAG FINAL; WHITE BLOOD COUNT 16.3 TH/MM3 (4.0-11.0)
--- NOTE | 2016-10-14 05:52 | RADRPT ---
EXAM DATE/TIME: 10/14/2016 04:14 [facility] COMPARISON: CHEST SINGLE AP, October 13, 2016, 13:47. INDICATIONS : Shortness of breath, possible pulmonary disease. MEDICAL HISTORY : Deep venous thrombosis. Cardiovascular disease. SURGICAL HISTORY : CABG. Coronary artery stent. ENCOUNTER: Subsequent ACUITY: 3 days PAIN SCORE: 7/10 LOCATION: Bilateral chest FINDINGS: Left chest tube remains in place. No perceptible pneumothorax. There are airspace opacities of the le ft base, modestly worse in the interim. The left chest wall emphysema appears slightly decreased in t he interim. Right lung remains reasonably clear. Heart size stable, upper limits of normal. Patient has been extubated. Nasogastric tube also out. There is a right internal jugular central veno us catheter that remains in place, tip in the superior vena cava. CONCLUSION: 1. Left chest tube remains in place. No pneumothorax seen. 2. Mild worsening left base consolidation. 3. Endotracheal tube and nasogastric tube out. Anjel Almaraz MD on October 14, 2016 at 5:49 Board Certified Radiologist. This report was verified electronically.
[2016-10-14 05:58] LABS: BICARBONATE 23.9 MEQ/L (21.0-32.0); MAGNESIUM 2.1 MG/DL (1.5-2.5); POTASSIUM 3.6 MEQ/L (3.5-5.1)
[2016-10-14] MEDS: ISOSORBIDE MONONITRATE 30 MG TAB PO SCH (07:00)
[2016-10-14] MEDS: ASPIRIN 81 MG CHEW TAB PO SCH (08:12)
[2016-10-14] MEDS: ATORVASTATIN 80 MG TAB PO SCH (08:12)
[2016-10-14] MEDS: CLOPIDOGREL 75 MG TAB PO SCH (08:12)
[2016-10-14] MEDS: DOCUSATE SODIUM 100 MG CAP PO SCH ×2 (08:12→21:03)
[2016-10-14] MEDS: AMIODARONE 200 MG TAB PO SCH (08:12)
[2016-10-14] MEDS: KETOROLAC TROMETHAMINE 30 MG/ML (IVP) VIAL IV PUSH PRN ×3 (08:13→23:52)
[2016-10-14] MEDS ORDERED: BISACODYL 10 MG SUPP RECTAL PRN (08:30)
[2016-10-14] MEDS ORDERED: DEXTROSE 50% IN WATER 50 ML VIAL(D50) IV PRN (08:30)
[2016-10-14] MEDS ORDERED: SOD PHOSPHATE/SOD BIPHOSPHATE (ADULT) ENEMA 133ML RECTAL PRN (08:30)
[2016-10-14] MEDS ORDERED: MAGNESIUM SULFATE 1 GM PREMIX 100 ML IV ONE (08:30)
[2016-10-14] MEDS ORDERED: GLUCAGON 1 MG/ML VIAL OTHER PRN (08:30)
[2016-10-14] MEDS ORDERED: AMIODARONE 200 MG TAB PO ONE (08:45)
[2016-10-14] MEDS: MULTIVITAMINS/MINERALS THERAPEUTIC TAB PO SCH (08:55)
[2016-10-14] MEDS: MAGNESIUM HYDROXIDE SUSP 30 ML CUP PO SCH (08:55)
[2016-10-14] MEDS: METOPROLOL TARTRATE 25 MG TAB PO SCH ×2 (08:55→21:03)
[2016-10-14] MEDS ORDERED: AMIODARONE INJ 150 MG in DEXTROSE 5% IN WATER 100ML INJ 97 ML IV ONE ×2 (09:00)
--- NOTE | 2016-10-14 09:03 | RSPPFT ---
DATE OF PROCEDURE: 10/11/16 COMMENTS: VOLUMES DYNAMIC: FVC and FEV1 pre-bronchodilator severely reduced with reduction in terminal airflow. Post-bronchodilator is a normal study. IMPRESSION: Mr. Freedman has a completely normal post-bronchodilator study which is probably not a bronchodilator response but a learning effect. I suspect there is an error in the pre-bronchodilator spirometry and I would ignore that. Clinical correlation is suggested.
[2016-10-14] MEDS: INSULIN ASPART SUPPLEMENTAL SCALE SQ SCH ×4 (10:00→22:00)
[2016-10-14] MEDS ORDERED: AMIODARONE INJ 450 MG in DEXTROSE 5% IN WATE(EXCEL) INJ 241 ML IV SCH ×2 (10:00)
[2016-10-14] MEDS ORDERED: RESP: ALBUTEROL 0.63 MG/3 ML NEB (PRN) NEB (11:00)
[2016-10-14] MEDS: VANCOMYCIN INJ 1,000 MG in SODIUM CHLOR 0.9% 250 ML INJ 250 ML IV SCH ×2 (11:08→11:38)
--- NOTE | 2016-10-14 11:14 | HHI.PR ---
Subjective Remarks F/u CAD. Surgical pain. 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 Objective Vitals Vital Signs Date Time Temp Pulse Resp B/P Pulse Ox O2 Delivery O2 Flow Rate FiO2 10/14/16 11:12 99.3 138 18 119/80 95 10/14/16 11:12 138 10/14/16 07:29 95 Nasal Cannula 2.00 10/14/16 07:00 96 Nasal Cannula 2.00 10/14/16 07:00 79 10/14/16 07:00 98.2 79 18 131/77 96 126/65 10/14/16 04:00 98.6 68 20 124/55 94 123/55 10/14/16 03:30 74 10/14/16 03:00 20 10/14/16 03:00 20 10/14/16 02:07 24 10/14/16 00:00 98.6 63 20 124/71 95 120/53 10/13/16 23:38 65 10/13/16 21:35 99 Nasal Cannula 2.00 10/13/16 20:00 95.9 62 20 150/62 97 123/60 10/13/16 19:35 97 Nasal Cannula 2.00 10/13/16 19:00 67 10/13/16 18:31 108/53 10/13/16 16:17 60 10/13/16 16:06 98.0 72 18 100/50 97 105/61 10/13/16 14:16 84 10/13/16 14:09 95 Nasal Cannula 3.00 Humidified 10/13/16 14:00 94 Nasal Cannula 3.00 10/13/16 14:00 95 Nasal Cannula 3 10/13/16 13:43 50 10/13/16 13:41 97 Mechanical Ventilator 50 10/13/16 13:31 116/53 97/51 10/13/16 13:31 97.6 61 9 116/53 97 97/51 10/13/16 13:15 96 50 I/O 10/13/16 10/13/16 10/13/16 10/14/16 10/14/16 10/14/16 07:00 15:00 23:00 07:00 15:00 23:00 Intake Total 240 ml 1070 ml 2274 ml Output Total 700 ml 600 ml 1475 ml Balance -460 ml 470 ml 799 ml Intake Oral 240 ml 480 ml 1200 ml IV Total 590 ml 1074 ml Output Urine Total 700 ml 510 ml 1425 ml Chest Tube Drainage Total 90 ml 50 ml # Voids 2 # Bowel Movements 0 0 Result Diagram: 10/14/16 0500 10/14/16 0500 Imaging Last Impressions Chest X-Ray 10/14/16 0500 Signed Impressions: Service Date/Time: October 04:14 - CONCLUSION: 1. Left chest tube remains in place. No pneumothorax seen. 2. Mild worsening left base consolidation. 3. Endotracheal tube and nasogastric tube out. Anjel Almaraz MD Carotid Artery Ultrasound 10/11/16 0000 Signed Impressions: Service Date/Time: Tuesday, October 11, 2016 11:49 - CONCLUSION: Minimal bilateral carotid plaques. No evidence of hemodynamically significant stenosis. Antegrade flow both vertebral arteries. Grant Holden MD Objective Remarks GENERAL: Well-developed, well-nourished in no distress SKIN: Warm and dry. HEAD: Atraumatic. Normocephalic. EYES: Pupils equal and round. No scleral icterus. No injection or drainage. ENT: No nasal bleeding or discharge. Mucous membranes pink and moist. NECK: Trachea midline. No JVD. CARDIOVASCULAR: Irregularly irregular. Dry dressing RESPIRATORY: No accessory muscle use. Clear to auscultation. Breath sounds equal bilaterally. GASTROINTESTINAL: Abdomen soft, non-tender, nondistended. MUSCULOSKELETAL: Extremities without clubbing, cyanosis, or edema. No obvious deformities. NEUROLOGICAL: Awake and alert. No obvious cranial nerve deficits. Motor grossly within normal limits. Five out of 5 muscle strength in the arms and legs. Normal speech. Nonfocal PSYCHIATRIC: Appropriate mood and affect; insight and judgment normal. Procedures Cardiac catheterization Minimally Invasive Coronary Artery Bypass Grafting x 1 (MIDCAB) with LANDIS to LAD A/P Problem List: (1) NSTEMI (non-ST elevated myocardial infarction) ICD Code: I21.4 Status: Acute Assessment and Plan This is a 46-year-old male smoker who presented to the emergency room because of chest pain. Patient states he developed moderate sharp right sided chest pain scale of 8 out of 10 that lasted for 15 minutes this morning and radiated to bilateral upper extremities associated with shortness of breath, diaphoresis and nausea. Slowly improved without medications. It recurred while he was preparing to go to work prompting ER evaluation. Patient states he's been having on and off exertional chest pain for the past 6 weeks. It is not pleuritic and doesn't feel like heartburn. He has a [employer] business. Denies dizziness and palpitations. New onset A. fib/flutter w RVR. Labs unremarkable. ECHO WNL. CT amiodarone loading, ct Lopressor and Cardizem drip as needed. Continue aspirin [id number] score of 1 (CA). NSTEMI status post cardiac catheterization s/p Minimally Invasive Coronary Artery Bypass Grafting x 1 (MIDCAB) with LANDIS to LAD. At this time he is stable , continue aspirin, Lopressor and Lipitor. CABG today. Risk factor modification. Follow-up A1c 5.4. Tobacco cessation Transient low BP secondary to meds. Improved. Nitro paste discontinued. IV fluids as needed . Continue to monitor Grief from recent loss of his mother. Counselled DVT prophylaxis s/p Lovenox. SCDs and early ambulation Discharge Planning Per cardiology and cardiovascular surgery Quinton Alonso MD Oct 14, 2016 11:14
[2016-10-14] MEDS ORDERED: METOPROLOL TARTRATE 25 MG TAB PO ONE (11:30)
[2016-10-14] MEDS: SODIUM CHLORIDE 0.9% FLUSH 5 ML FLUSH IV FLUSH SCH ×2 (11:38→21:03)
--- NOTE | 2016-10-14 11:47 | PD.CAR.PN ---
CVT Progress Note CVT: POD #: 1 Subjective/Hospital Course: 46-year-old male smoker who presented to the emergency room because of chest pain. Patient states he developed moderate sharp right sided chest pain scale of 8 out of 10 that lasted for 15 minutes this morning and radiated to bilateral upper extremities associated with shortness of breath, diaphoresis and nausea. Slowly improved without medications. It recurred while he was preparing to go to work prompting ER evaluation. Patient states he's been having on and off exertional chest pain for the past 6 weeks. It is not pleuritic and doesn't feel like heartburn. 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 Denies dizziness and palpitations. No history of CAD, peripheral vascular disease, DVT and pulmonary embolism. He traveled to [facility] 3 weeks ago but denies leg pain. He has intermittent hand, foot pain and lower extremity swelling whenever he drinks last alcohol intake 3 weeks ago. In the emergency department, he was noted to have abnormal EKG(see below) and slightly elevated troponin. cardiac risk factors : positive family history for heart disease and a 36 pack year smoker. cath EF normal prox 90% LAD 10/11 scheduled for surgery in am CABG 10/12 doing well surgery rescheduled for am 10/13 Minimally Invasive Coronary Artery Bypass Grafting x 1 (MIDCAB) with LANDIS to LAD 1200 crystalloid , 250cc/ EBL , 300cc urine extubated post surgery 10/14 went back into afib RVR today / Alejo v score 1.3 amiodarone bolus and gtt started, on BB will eval again additional mag given hold on diuresis will transfer to stepdown later today continue pulm toileting Objective: GENERAL: SKIN: Warm and dry.incision intact left upper chest / well approximated, HEAD: Normocephalic. EYES: No scleral icterus. No injection or drainage. NECK: Supple, trachea midline. No JVD or lymphadenopathy. CARDIOVASCULAR: irregular rate and rhythm without murmurs, gallops, or rubs. RESPIRATORY: diminished in bases chest tube to wall suction, no air leak / drained 50cc/ 12 hrs GASTROINTESTINAL: Abdomen soft, non-tender, nondistended. MUSCULOSKELETAL: No cyanosis, or edema. BACK: Nontender without obvious deformity. No CVA tenderness. Vital Signs Date Time Temp Pulse Resp B/P Pulse Ox O2 Delivery O2 Flow Rate FiO2 2/2/17 11:12 99.3 138 18 119/80 95 10/14/16 11:12 138 10/14/16 07:29 95 Nasal Cannula 2.00 10/14/16 07:00 96 Nasal Cannula 2.00 10/14/16 07:00 79 10/14/16 07:00 98.2 79 18 131/77 96 126/65 10/14/16 04:00 98.6 68 20 124/55 94 123/55 10/14/16 03:30 74 10/14/16 03:00 20 10/14/16 03:00 20 10/14/16 02:07 24 10/14/16 00:00 98.6 63 20 124/71 95 120/53 10/13/16 23:38 65 10/13/16 21:35 99 Nasal Cannula 2.00 10/13/16 20:00 95.9 62 20 150/62 97 123/60 10/13/16 19:35 97 Nasal Cannula 2.00 10/13/16 19:00 67 10/13/16 18:31 108/53 10/13/16 16:17 60 10/13/16 16:06 98.0 72 18 100/50 97 105/61 10/13/16 14:16 84 10/13/16 14:09 95 Nasal Cannula 3.00 Humidified 10/13/16 14:00 94 Nasal Cannula 3.00 10/13/16 14:00 95 Nasal Cannula 3 10/13/16 13:43 50 10/13/16 13:41 97 Mechanical Ventilator 50 10/13/16 13:31 116/53 97/51 10/13/16 13:31 97.6 61 9 116/53 97 97/51 10/13/16 13:15 96 50 Labs: Laboratory Tests Test 10/14/16 05:00 White Blood Count 16.3 TH/MM3 (4.0-11.0) Red Blood Count 3.97 MIL/MM3 (4.50-5.90) Hemoglobin 12.9 GM/DL (13.0-17.0) Hematocrit 36.9 % (39.0-51.0) Mean Corpuscular Volume 92.9 FL (80.0-100.0) Mean Corpuscular Hemoglobin 32.4 PG (27.0-34.0) Mean Corpuscular Hemoglobin 34.9 % Concent (32.0-36.0) Red Cell Distribution Width 12.9 % (11.6-17.2) Platelet Count 196 TH/MM3 (150-450) Mean Platelet Volume 10.4 FL (7.0-11.0) Sodium Level 138 MEQ/L (136-145) Potassium Level 3.6 MEQ/L (3.5-5.1) Chloride Level 105 MEQ/L (98-107) Carbon Dioxide Level 23.9 MEQ/L (21.0-32.0) Anion Gap 9 MEQ/L (5-15) Blood Urea Nitrogen 12 MG/DL (7-18) Creatinine 0.76 MG/DL (0.60-1.30) Estimat Glomerular Filtration 110 ML/MIN Rate (>89) Random Glucose 99 MG/DL (74-106) Calcium Level 8.1 MG/DL (8.5-10.1) Phosphorus Level 2.9 MG/DL (2.5-4.9) Magnesium Level 2.1 MG/DL (1.5-2.5) Thyroid Stimulating Hormone 0.955 uIU/ML 3rd Gen (0.358-3.740) Result Diagram: 10/14/16 0500 10/14/16 0500 (1) NSTEMI (non-ST elevated myocardial infarction) Plan: ASA, BB , statin, pulm toileting leave chest tubes in ambulate/ OOB CM eval for HHC (2) Unstable angina (3) Tobacco abuse Plan: smoking cessation (4) Atrial fibrillation Plan: alejo v score 1.3 on IV amiodarone and BB additional mag given / potassium given Meg Abreu Oct 14, 2016 11:47
--- NOTE | 2016-10-14 11:50 | HHI.FF ---
Face to Face Verification Diagnosis: (1) S/P CABG x 1 (2) NSTEMI (non-ST elevated myocardial infarction) (3) Tobacco abuse (4) Atrial fibrillation Home Health Nursing Order: Signs/symptoms of disease process Wound care and dressing changes Instructions: Heart and Vascular Surgery patients *Special attention to sternal dressing Mandatory frequency Assess and evaluation, 4 days in a row The next week 3X week 2 times a week for 4 weeks 1 time a week for 5 weeks Schedule Heart and Vascular patients for full 60 day certification period Initial visit Review Open Heart Surgery Discharge Instructions (Sternal precautions, Activity, Elastic hose, Incision care, Driving, Incentive spirometry, Smoking, [address], Work and other) Need Betadine to paint incision Medication reconciliation Importance of follow up care/ check on appointments Make calendar record temperature daily When to call [facility] at Home nurse, review instructions, phone list Incentive Spirometry, demonstration Visit 1- Begin discharge instruction for patient family and/ or caregiver using teach back method- Signs and symptoms of infection Disease characteristics Medicines and side effects Foods and nutrition/ appetite Infection control/ hand washing/ hygiene Visit 2- Continue teaching Discharge instructions- include additional information on smoking cessation , sternal dressing (sternal vac) Visit 3- Continue teaching- Cough and deep breathing, incision monitoring. Choose my plate Visit 4- Continue teaching- Discuss limitations Discuss how they are feeling Discuss progress toward goals Remaining visits- continue teaching and monitoring Incentive spirometry Q1 hr x 10, while awake, also use acapella device hourly whole awake chest wall Bone Precautions: NO pushing or pulling, ( pt must use chest pillow to support chest with all activities and with coughing Daily incision care: ok to shower daily, no tub bath. Wash all incisions with liquid dial soap, clean wash cloth to each site, rinse and pat dry. Observe for any signs of infection, such as drainage which is dark yellow, lucia, green or foul smelling. Immediately report to the surgeon any drainage from the chest incision, or legs, and for any abnormal drainage from the chest tube sites. Notify surgeon if any temp >101.5 degrees F. When specialty dressing removed/ or if you do not have one, continue to shower daily as above, then rinse and pat incision dry and paint with betadine daily x 5 days. Allow steri strips to fall off if you have any. Avoid lotions, creams, salves, oils, etc. for the first month F/U appointment: as per DC instructions: PCP in 2 weeks, CV surgeon 2 weeks, Japanese Interpreter 3-4 weeks For any questions regarding incisions/ dressing / meds / post op care or above Symptoms, Tuesday 8am-5pm Heart & Vascular Surgery Office ( Dr. Morel & Dr. Leon), After Hours / Nights (5pm -8am) Weekends and Holidays Please call [facility] Cardiac Intermediate Care Unit (CIC) Charge Nurse I have seen patient Benton Freedman on 10/14/16. My clinical findings support the need for the requested home health care services because: Deconditioned w/ increased weakness I certify that my clinical findings support that this patient is homebound because: Post-op weakness Meg Abreu Oct 14, 2016 11:50
[2016-10-14] MEDS ORDERED: FUROSEMIDE 20 MG/2 ML VIAL IV PUSH ONE (12:00)
[2016-10-14] MEDS ORDERED: POTASSIUM CHLORIDE 10 MEQ CONTROLLED RELEASE TAB PO ONE (12:00)
[2016-10-14] MEDS: RESP: IPRATROPIUM 0.5 MG/2.5 ML NEB NEB SCH ×2 (14:07→20:02)
[2016-10-14] MEDS ORDERED: AMIODARONE 200 MG TAB PO SCH (21:00)
[2016-10-14] MEDS: SENNOSIDES 8.6 MG TAB PO SCH (21:03)
[2016-10-15] VITALS (25 sets, daily range): BP systolic 107–139; BP diastolic 58–69; PULSE 60–123; RESP 14–18; TEMP 97.7–99; O2SAT 94–98
[2016-10-15] MEDS ORDERED: AMIODARONE 150 MG/D5W 97 ML BOLUS 10 MINUTES IV ONE ×2 (01:00)
[2016-10-15] MEDS: INSULIN ASPART SUPPLEMENTAL SCALE SQ SCH ×5 (02:00→21:00)
[2016-10-15] MEDS: PANTOPRAZOLE SOD 40 MG DELAYED RELEASE TAB PO SCH (06:04)
[2016-10-15] MEDS: oxyCODONE/ACETAMINOPHEN 5 MG/325 MG TAB PO PRN ×4 (06:04→21:18)
[2016-10-15] MEDS: KETOROLAC TROMETHAMINE 30 MG/ML (IVP) VIAL IV PUSH PRN ×2 (06:05→11:14)
--- NOTE | 2016-10-15 06:52 | EKG ---
Date Performed: 10/14/2016 Time Performed: 05:10:24 PTAGE: 46 years EKG: Sinus rhythm Lateral ST elevation, CONSIDER ACUTE INFARCT Abnormal ECG PREVIOUS TRACING : 10/10/2016 06.43 Compared to the previous tracing, afib no longer present DOCTOR: Hasmukh Nelson Interpretating Date/Time 10/15/2016 06:49:44
[2016-10-15 07:19] LABS: AUTOMATED NEUTROPHIL # 10.4 TH/MM3 (1.8-7.7); BASOPHIL # 0.1 TH/MM3 (0-0.2); BASOPHIL % 0.4 % (0.0-2.0); EOSINOPHIL # 0.1 TH/MM3 (0-0.4); EOSINOPHIL % 0.9 % (0.0-4.0); HEMATOCRIT 38.1 % (39.0-51.0); HEMO FLAGS DIFF FINAL; LYMPH % 12.2 % (9.0-44.0); LYMPHOCYTE # 1.7 TH/MM3 (1.0-4.8); MEAN CELL VOLUME 93.5 FL (80.0-100.0); MEAN CORPUSCULAR HEMOGLOBIN 32.9 PG (27.0-34.0); MEAN CORPUSCULAR HGB CONC 35.1 % (32.0-36.0); MONO % 12.9 % (0.0-8.0); NEUT % 73.6 % (16.0-70.0); PLATELET COUNT 183 TH/MM3 (150-450); RED BLOOD COUNT 4.07 MIL/MM3 (4.50-5.90); WHITE BLOOD COUNT 14.1 TH/MM3 (4.0-11.0)
[2016-10-15 07:22] LABS: MAGNESIUM 2.1 MG/DL (1.5-2.5); POTASSIUM 4.1 MEQ/L (3.5-5.1)
[2016-10-15] MEDS: RESP: IPRATROPIUM 0.5 MG/2.5 ML NEB NEB SCH ×3 (07:35→20:43)
[2016-10-15] MEDS: SODIUM CHLORIDE 0.9% FLUSH 5 ML FLUSH IV FLUSH SCH ×2 (08:29→21:16)
[2016-10-15] MEDS: DOCUSATE SODIUM 100 MG CAP PO SCH ×2 (08:29→21:14)
[2016-10-15] MEDS: MULTIVITAMINS/MINERALS THERAPEUTIC TAB PO SCH (08:29)
[2016-10-15] MEDS: ASPIRIN 81 MG CHEW TAB PO SCH (08:29)
[2016-10-15] MEDS: POLYETHYLENE GLYCOL 17 GM PKG PO SCH (08:29)
[2016-10-15] MEDS: ATORVASTATIN 80 MG TAB PO SCH (08:29)
[2016-10-15] MEDS: METOPROLOL TARTRATE 25 MG TAB PO SCH ×2 (08:29→21:15)
[2016-10-15] MEDS: CLOPIDOGREL 75 MG TAB PO SCH (08:29)
[2016-10-15] MEDS: MAGNESIUM HYDROXIDE SUSP 30 ML CUP PO SCH (08:29)
--- NOTE | 2016-10-15 10:45 | PD.CAR.PN ---
CVT Progress Note CVT: POD #: 2 Subjective/Hospital Course: 46-year-old male smoker who presented to the emergency room because of chest pain. Patient states he developed moderate sharp right sided chest pain scale of 8 out of 10 that lasted for 15 minutes this morning and radiated to bilateral upper extremities associated with shortness of breath, diaphoresis and nausea. Slowly improved without medications. It recurred while he was preparing to go to work prompting ER evaluation. Patient states he's been having on and off exertional chest pain for the past 6 weeks. It is not pleuritic and doesn't feel like heartburn. 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 Denies dizziness and palpitations. No history of CAD, peripheral vascular disease, DVT and pulmonary embolism. He traveled to [facility] 3 weeks ago but denies leg pain. He has intermittent hand, foot pain and lower extremity swelling whenever he drinks last alcohol intake 3 weeks ago. In the emergency department, he was noted to have abnormal EKG(see below) and slightly elevated troponin. cardiac risk factors : positive family history for heart disease and a 36 pack year smoker. cath EF normal prox 90% LAD 10/11 scheduled for surgery in am CABG 10/12 doing well surgery rescheduled for am 10/13 Minimally Invasive Coronary Artery Bypass Grafting x 1 (MIDCAB) with LANDIS to LAD 1200 crystalloid , 250cc/ EBL , 300cc urine extubated post surgery 2/2 went back into afib RVR today / Alejo v score 1.3 amiodarone bolus and gtt started, on BB will eval again additional mag given hold on diuresis will transfer to stepdown later today continue pulm toileting 2/3 on room air converted back to NSR , will dc IV amiodarone , restart po dc chest tube today, possible dc tomorrow with HHC continue BB, ASA, statin Objective: GENERAL: SKIN: Warm and dry./ incision intact left chest wall / HEAD: Normocephalic. EYES: No scleral icterus. No injection or drainage. NECK: Supple, trachea midline. No JVD or lymphadenopathy. CARDIOVASCULAR: Regular rate and rhythm without murmurs, gallops, or rubs. NSR RESPIRATORY: Breath sounds equal bilaterally. No accessory muscle use. chest tube in place, no air / drained 70cc/ 12 hrs GASTROINTESTINAL: Abdomen soft, non-tender, nondistended. MUSCULOSKELETAL: No cyanosis, or edema. BACK: Nontender without obvious deformity. No CVA tenderness. Vital Signs Date Time Temp Pulse Resp B/P Pulse Ox O2 Delivery O2 Flow Rate FiO2 10/15/16 10:05 64 10/15/16 09:00 60 10/15/16 08:00 111 10/15/16 08:00 97.8 111 18 107/66 94 10/15/16 08:00 94 Room Air 10/15/16 07:30 94 10/15/16 07:14 18 10/15/16 07:14 18 10/15/16 06:00 106 10/15/16 05:00 100 10/15/16 04:00 100 10/15/16 03:24 99.0 101 14 115/58 98 10/15/16 03:00 102 10/15/16 02:00 105 10/15/16 00:11 99.0 123 14 139/59 96 10/15/16 00:00 123 10/14/16 23:00 130 10/14/16 22:00 127 10/14/16 21:37 98 Nasal Cannula 2.00 10/14/16 21:30 99.3 78 14 132/73 94 10/14/16 21:00 133 10/14/16 20:03 95 Nasal Cannula 1.00 10/14/16 20:00 67 10/14/16 19:00 77 10/14/16 18:00 72 10/14/16 17:00 69 10/14/16 16:54 20 10/14/16 16:00 67 10/14/16 15:00 98.4 70 23 117/60 95 Arterial Line 10/14/16 15:00 70 10/14/16 14:00 78 10/14/16 11:12 99.3 138 18 119/80 95 10/14/16 11:12 138 Labs: Laboratory Tests Test 10/15/16 06:15 White Blood Count 14.1 TH/MM3 (4.0-11.0) Red Blood Count 4.07 MIL/MM3 (4.50-5.90) Hemoglobin 13.4 GM/DL (13.0-17.0) Hematocrit 38.1 % (39.0-51.0) Mean Corpuscular Volume 93.5 FL (80.0-100.0) Mean Corpuscular Hemoglobin 32.9 PG (27.0-34.0) Mean Corpuscular Hemoglobin 35.1 % Concent (32.0-36.0) Red Cell Distribution Width 13.0 % (11.6-17.2) Platelet Count 183 TH/MM3 (150-450) Mean Platelet Volume 10.8 FL (7.0-11.0) Neutrophils (%) (Auto) 73.6 % (16.0-70.0) Lymphocytes (%) (Auto) 12.2 % (9.0-44.0) Monocytes (%) (Auto) 12.9 % (0.0-8.0) Eosinophils (%) (Auto) 0.9 % (0.0-4.0) Basophils (%) (Auto) 0.4 % (0.0-2.0) Neutrophils # (Auto) 10.4 TH/MM3 (1.8-7.7) Lymphocytes # (Auto) 1.7 TH/MM3 (1.0-4.8) Monocytes # (Auto) 1.8 TH/MM3 (0-0.9) Eosinophils # (Auto) 0.1 TH/MM3 (0-0.4) Basophils # (Auto) 0.1 TH/MM3 (0-0.2) CBC Comment DIFF FINAL Differential Comment Sodium Level 135 MEQ/L (136-145) Potassium Level 4.1 MEQ/L (3.5-5.1) Chloride Level 101 MEQ/L (98-107) Carbon Dioxide Level 25.0 MEQ/L (21.0-32.0) Anion Gap 9 MEQ/L (5-15) Blood Urea Nitrogen 13 MG/DL (7-18) Creatinine 0.87 MG/DL (0.60-1.30) Estimat Glomerular Filtration 94 ML/MIN (>89) Rate Random Glucose 92 MG/DL (74-106) Calcium Level 8.9 MG/DL (8.5-10.1) Magnesium Level 2.1 MG/DL (1.5-2.5) Result Diagram: 10/15/1661410/15/16614 Telemetry: afib >NSR (1) NSTEMI (non-ST elevated myocardial infarction) Plan: ASA, BB , statin, pulm toileting dc chest tubes today ambulate/ OOB CM eval for HHC (2) Unstable angina (3) Tobacco abuse Plan: smoking cessation (4) Atrial fibrillation Plan: alejo v score 1.3 resolved, dc IV , restart po additional mag given / potassium given Meg Abreu Oct 15, 2016 10:45
--- NOTE | 2016-10-15 11:00 | HHI.PR ---
Subjective Remarks Follow-up RVR. Telemetry shows sinus rhythm. Patient denies palpitations and shortness of breath. Discussed with RN Objective Vitals Vital Signs Date Time Temp Pulse Resp B/P Pulse Ox O2 Delivery O2 Flow Rate FiO2 10/15/16 10:05 64 10/15/16 09:00 60 10/15/16 08:00 111 10/15/16 08:00 97.8 111 18 107/66 94 10/15/16 08:00 94 Room Air 10/15/16 07:30 94 10/15/16 07:14 18 10/15/16 07:14 18 10/15/16 06:00 106 10/15/16 05:00 100 10/15/16 04:00 100 10/15/16 03:24 99.0 101 14 115/58 98 10/15/16 03:00 102 10/15/16 02:00 105 10/15/16 00:11 99.0 123 14 139/59 96 10/15/16 00:00 123 10/14/16 23:00 130 10/14/16 22:00 127 10/14/16 21:37 98 Nasal Cannula 2.00 10/14/16 21:30 99.3 78 14 132/73 94 10/14/16 21:00 133 10/14/16 20:03 95 Nasal Cannula 1.00 10/14/16 20:00 67 10/14/16 19:00 77 10/14/16 18:00 72 10/14/16 17:00 69 10/14/16 16:54 20 10/14/16 16:00 67 10/14/16 15:00 98.4 70 23 117/60 95 Arterial Line 10/14/16 15:00 70 10/14/16 14:00 78 10/14/16 11:12 99.3 138 18 119/80 95 10/14/16 11:12 138 I/O 10/14/16 10/14/16 10/14/16 10/15/16 10/15/16 10/15/16 07:00 15:00 23:00 07:00 15:00 23:00 Intake Total 2274 ml 1180 ml 1140 ml Output Total 1475 ml 1447 ml 1395 ml Balance 799 ml -267 ml -255 ml Intake Oral 1200 ml 960 ml 840 ml IV Total 1074 ml 220 ml 300 ml Output Urine Total 1425 ml 1425 ml 1325 ml Chest Tube Drainage Total 50 ml 22 ml 70 ml # Bowel Movements 0 0 Result Diagram: 10/15/1661410/15/16614 Objective Remarks GENERAL: Well-developed, well-nourished in no distress SKIN: Warm and dry. HEAD: Atraumatic. Normocephalic. EYES: Pupils equal and round. No scleral icterus. No injection or drainage. ENT: No nasal bleeding or discharge. Mucous membranes pink and moist. NECK: Trachea midline. No JVD. CARDIOVASCULAR: Irregularly irregular. Dry dressing. Chest tube in place RESPIRATORY: No accessory muscle use. Clear to auscultation. Breath sounds equal bilaterally. GASTROINTESTINAL: Abdomen soft, non-tender, nondistended. MUSCULOSKELETAL: Extremities without clubbing, cyanosis, or edema. No obvious deformities. NEUROLOGICAL: Awake and alert. No obvious cranial nerve deficits. Motor grossly within normal limits. Five out of 5 muscle strength in the arms and legs. Normal speech. Nonfocal PSYCHIATRIC: Appropriate mood and affect; insight and judgment normal. Procedures Cardiac catheterization Minimally Invasive Coronary Artery Bypass Grafting x 1 (MIDCAB) with LANDIS to LAD A/P Problem List: (1) NSTEMI (non-ST elevated myocardial infarction) ICD Code: I21.4 Status: Acute Assessment and Plan This is a 46-year-old male smoker who presented to the emergency room because of chest pain. Patient states he developed moderate sharp right sided chest pain scale of 8 out of 10 that lasted for 15 minutes this morning and radiated to bilateral upper extremities associated with shortness of breath, diaphoresis and nausea. Slowly improved without medications. It recurred while he was preparing to go to work prompting ER evaluation. Patient states he's been having on and off exertional chest pain for the past 6 weeks. It is not pleuritic and doesn't feel like heartburn. He has a [employer] business. Denies dizziness and palpitations. New onset A. fib/flutter w RVR. Labs unremarkable. ECHO WNL. Now in sinus rhythm. CT amiodarone loading, Lopressor and Cardizem drip as needed. Continue aspirin [id number] score of 1 (AL). NSTEMI status post cardiac catheterization s/p Minimally Invasive Coronary Artery Bypass Grafting x 1 (MIDCAB) with LANDIS to LAD. At this time he is stable , continue aspirin, Lopressor and Lipitor. Dc CT. Risk factor modification. Follow-up A1c 5.4. Tobacco cessation Transient low BP secondary to meds. Improved. Nitro paste discontinued. IV fluids as needed . Continue to monitor Grief from recent loss of his mother. Counselled DVT prophylaxis s/p Lovenox. SCDs and early ambulation Discharge Planning Per cardiology and cardiovascular surgery Quinton Alonso MD Oct 15, 2016 11:00
[2016-10-15] MEDS: AMIODARONE 200 MG TAB PO SCH ×2 (11:13→21:14)
[2016-10-15] MEDS ORDERED: Aspirin Chew PO (15:09)
[2016-10-15] MEDS ORDERED: METO25TA3 PO (15:09)
[2016-10-15] MEDS ORDERED: AMIO200T PO (15:09)
[2016-10-15] MEDS ORDERED: LIPI80TA PO (15:09)
[2016-10-15] MEDS ORDERED: THERM PO (15:09)
[2016-10-15] MEDS ORDERED: DOCU1CAP39 PO (15:09)
[2016-10-15] MEDS ORDERED: PLAV75TA29 PO (15:09)
--- NOTE | 2016-10-15 15:12 | PD.CAR.PN ---
CVT Progress Note CVT: POD #: 3 Subjective/Hospital Course: 46-year-old male smoker who presented to the emergency room because of chest pain. Patient states he developed moderate sharp right sided chest pain scale of 8 out of 10 that lasted for 15 minutes this morning and radiated to bilateral upper extremities associated with shortness of breath, diaphoresis and nausea. Slowly improved without medications. It recurred while he was preparing to go to work prompting ER evaluation. Patient states he's been having on and off exertional chest pain for the past 6 weeks. It is not pleuritic and doesn't feel like heartburn. 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 Denies dizziness and palpitations. No history of CAD, peripheral vascular disease, DVT and pulmonary embolism. He traveled to [facility] 3 weeks ago but denies leg pain. He has intermittent hand, foot pain and lower extremity swelling whenever he drinks last alcohol intake 3 weeks ago. In the emergency department, he was noted to have abnormal EKG(see below) and slightly elevated troponin. cardiac risk factors : positive family history for heart disease and a 36 pack year smoker. cath EF normal prox 90% LAD 10/11 scheduled for surgery in am CABG 10/12 doing well surgery rescheduled for am 10/13 Minimally Invasive Coronary Artery Bypass Grafting x 1 (MIDCAB) with LANDIS to LAD 1200 crystalloid , 250cc/ EBL , 300cc urine extubated post surgery 2 went back into afib RVR today / Alejo v score 1.3 amiodarone bolus and gtt started, on BB will eval again additional mag given hold on diuresis will transfer to stepdown later today continue pulm toileting 2/3 on room air converted back to NSR , will dc IV amiodarone , restart po dc chest tube today, possible dc tomorrow with HHC continue BB, ASA, statin Objective: Vital Signs Date Time Temp Pulse Resp B/P Pulse Ox O2 Delivery O2 Flow Rate FiO2 10/15/16 14:25 64 10/15/16 13:20 65 10/15/16 12:14 18 10/15/16 12:14 18 10/15/16 12:08 68 10/15/16 12:08 97.7 64 18 118/69 94 10/15/16 12:08 94 Room Air 10/15/16 10:05 64 10/15/16 09:00 60 10/15/16 08:00 111 10/15/16 08:00 97.8 111 18 107/66 94 10/15/16 08:00 94 Room Air 10/15/16 07:30 94 10/15/16 06:00 106 10/15/16 05:00 100 10/15/16 04:00 100 10/15/16 03:24 99.0 101 14 115/58 98 10/15/16 03:00 102 10/15/16 02:00 105 10/15/16 00:11 99.0 123 14 139/59 96 10/15/16 00:00 123 10/14/16 23:00 130 10/14/16 22:00 127 10/14/16 21:37 98 Nasal Cannula 2.00 10/14/16 21:30 99.3 78 14 132/73 94 10/14/16 21:00 133 10/14/16 20:03 95 Nasal Cannula 1.00 10/14/16 20:00 67 10/14/16 19:00 77 10/14/16 18:00 72 10/14/16 17:00 69 10/14/16 16:54 20 10/14/16 16:00 67 Labs: Laboratory Tests Test 10/15/16 06:15 White Blood Count 14.1 TH/MM3 (4.0-11.0) Red Blood Count 4.07 MIL/MM3 (4.50-5.90) Hemoglobin 13.4 GM/DL (13.0-17.0) Hematocrit 38.1 % (39.0-51.0) Mean Corpuscular Volume 93.5 FL (80.0-100.0) Mean Corpuscular Hemoglobin 32.9 PG (27.0-34.0) Mean Corpuscular Hemoglobin 35.1 % Concent (32.0-36.0) Red Cell Distribution Width 13.0 % (11.6-17.2) Platelet Count 183 TH/MM3 (150-450) Mean Platelet Volume 10.8 FL (7.0-11.0) Neutrophils (%) (Auto) 73.6 % (16.0-70.0) Lymphocytes (%) (Auto) 12.2 % (9.0-44.0) Monocytes (%) (Auto) 12.9 % (0.0-8.0) Eosinophils (%) (Auto) 0.9 % (0.0-4.0) Basophils (%) (Auto) 0.4 % (0.0-2.0) Neutrophils # (Auto) 10.4 TH/MM3 (1.8-7.7) Lymphocytes # (Auto) 1.7 TH/MM3 (1.0-4.8) Monocytes # (Auto) 1.8 TH/MM3 (0-0.9) Eosinophils # (Auto) 0.1 TH/MM3 (0-0.4) Basophils # (Auto) 0.1 TH/MM3 (0-0.2) CBC Comment DIFF FINAL Differential Comment Sodium Level 135 MEQ/L (136-145) Potassium Level 4.1 MEQ/L (3.5-5.1) Chloride Level 101 MEQ/L (98-107) Carbon Dioxide Level 25.0 MEQ/L (21.0-32.0) Anion Gap 9 MEQ/L (5-15) Blood Urea Nitrogen 13 MG/DL (7-18) Creatinine 0.87 MG/DL (0.60-1.30) Estimat Glomerular Filtration 94 ML/MIN (>89) Rate Random Glucose 92 MG/DL (74-106) Calcium Level 8.9 MG/DL (8.5-10.1) Magnesium Level 2.1 MG/DL (1.5-2.5) Result Diagram: 10/15/1661410/15/16614 (1) NSTEMI (non-ST elevated myocardial infarction) Plan: ASA, BB , statin, pulm toileting dc chest tubes today ambulate/ OOB CM eval for HHC (2) Unstable angina (3) Tobacco abuse Plan: smoking cessation (4) Atrial fibrillation Plan: alejo v score 1.3 resolved, dc IV , restart po Meg Abreu Oct 15, 2016 15:12
[2016-10-15] MEDS ORDERED: POTASSIUM CHLORIDE 20 MEQ CONTROLLED RELEASE TAB PO ONE (15:15)
[2016-10-15] MEDS ORDERED: FUROSEMIDE 40 MG/4 ML VIAL IV PUSH ONE (15:15)
[2016-10-15] MEDS ORDERED: PNEUMOCOCCAL POLYVALENT INJ 25 MCG/0.5 ML SYR IM ONE (21:00)
[2016-10-15] MEDS: SENNOSIDES 8.6 MG TAB PO SCH (21:14)
[2016-10-16] VITALS (11 sets, daily range): BP systolic 110–122; BP diastolic 69–75; PULSE 63–77; RESP 16–18; TEMP 98.1–98.5; O2SAT 91–96
[2016-10-16] MEDS: oxyCODONE/ACETAMINOPHEN 5 MG/325 MG TAB PO PRN ×3 (00:59→10:04)
[2016-10-16] MEDS: PANTOPRAZOLE SOD 40 MG DELAYED RELEASE TAB PO SCH (04:23)
[2016-10-16 05:14] LABS: BICARBONATE 21.3 MEQ/L (21.0-32.0); POTASSIUM 4.8 MEQ/L (3.5-5.1)
[2016-10-16] MEDS: INSULIN ASPART SUPPLEMENTAL SCALE SQ SCH (07:00)
[2016-10-16] MEDS: RESP: IPRATROPIUM 0.5 MG/2.5 ML NEB NEB SCH (08:21)
--- NOTE | 2016-10-16 08:22 | PD.CAR.PN ---
CVT Progress Note Subjective/Hospital Course: 46-year-old male smoker who presented to the emergency room because of chest pain. Patient states he developed moderate sharp right sided chest pain scale of 8 out of 10 that lasted for 15 minutes this morning and radiated to bilateral upper extremities associated with shortness of breath, diaphoresis and nausea. Slowly improved without medications. It recurred while he was preparing to go to work prompting ER evaluation. Patient states he's been having on and off exertional chest pain for the past 6 weeks. It is not pleuritic and doesn't feel like heartburn. 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 Denies dizziness and palpitations. No history of CAD, peripheral vascular disease, DVT and pulmonary embolism. He traveled to [facility] 3 weeks ago but denies leg pain. He has intermittent hand, foot pain and lower extremity swelling whenever he drinks last alcohol intake 3 weeks ago. In the emergency department, he was noted to have abnormal EKG(see below) and slightly elevated troponin. cardiac risk factors : positive family history for heart disease and a 36 pack year smoker. cath EF normal prox 90% LAD 10/11 scheduled for surgery in am CABG 10/12 doing well surgery rescheduled for am 10/13 Minimally Invasive Coronary Artery Bypass Grafting x 1 (MIDCAB) with LANDIS to LAD 1200 crystalloid , 250cc/ EBL , 300cc urine extubated post surgery 10/14 went back into afib RVR today / Alejo v score 1.3 amiodarone bolus and gtt started, on BB will eval again additional mag given hold on diuresis will transfer to stepdown later today continue pulm toileting 2/3 on room air converted back to NSR , will dc IV amiodarone , restart po dc chest tube today, possible dc tomorrow with HHC continue BB, ASA, statin 2/4 D/C home Objective: Vital Signs Date Time Temp Pulse Resp B/P Pulse Ox O2 Delivery O2 Flow Rate FiO2 10/16/16 07:00 74 10/16/16 05:00 77 10/16/16 04:15 98.5 67 16 119/75 94 10/16/16 04:12 95 Room Air 10/16/16 04:00 74 10/16/16 03:00 74 10/16/16 02:00 77 10/16/16 01:00 67 10/16/16 00:31 98.1 63 16 122/71 91 10/16/16 00:27 91 Room Air 10/16/16 00:00 66 10/15/16 23:00 63 10/15/16 22:00 73 10/15/16 20:44 97 10/15/16 20:00 77 10/15/16 19:57 98.2 79 16 138/67 94 10/15/16 19:24 94 Room Air 10/15/16 19:00 74 10/15/16 18:17 18 10/15/16 18:00 71 10/15/16 17:49 84 10/15/16 16:42 87 10/15/16 15:15 97.8 74 18 114/66 94 10/15/16 15:15 94 Room Air 10/15/16 15:15 85 10/15/16 14:25 64 10/15/16 13:20 65 10/15/16 12:14 18 10/15/16 12:08 68 10/15/16 12:08 97.7 64 18 118/69 94 10/15/16 12:08 94 Room Air 10/15/16 10:05 64 10/15/16 09:00 60 Labs: Laboratory Tests Test 10/16/16 04:45 Sodium Level 136 MEQ/L (136-145) Potassium Level 4.8 MEQ/L (3.5-5.1) Chloride Level 104 MEQ/L (98-107) Carbon Dioxide Level 21.3 MEQ/L (21.0-32.0) Anion Gap 11 MEQ/L (5-15) Blood Urea Nitrogen 16 MG/DL (7-18) Creatinine 1.00 MG/DL (0.60-1.30) Estimat Glomerular Filtration 80 ML/MIN (>89) Rate Random Glucose 107 MG/DL (74-106) Calcium Level 8.8 MG/DL (8.5-10.1) Result Diagram: 10/15/16 0615 10/16/16 0445 (1) NSTEMI (non-ST elevated myocardial infarction) Plan: ASA, BB , statin, pulm toileting dc chest tubes today ambulate/ OOB CM eval for HHC (2) Unstable angina (3) Tobacco abuse Plan: smoking cessation (4) Atrial fibrillation Plan: alejo v score 1.3 resolved, dc IV , restart po Cameron Morel MD Oct 16, 2016 08:22
--- NOTE | 2016-10-16 08:24 | HHI.DS ---
Discharge Summary Admission Date Oct 11, 2016 at 15:45 Admitting Diagnosis NSTEMI (1) NSTEMI (non-ST elevated myocardial infarction) CBC/BMP: 10/15/16 0615 10/16/16 0445 Significant Findings Laboratory Tests Test 10/14/16 10/15/16 10/16/16 05:00 06:15 04:45 White Blood Count 16.3 TH/MM3 14.1 TH/MM3 (4.0-11.0) (4.0-11.0) Red Blood Count 3.97 MIL/MM3 4.07 MIL/MM3 (4.50-5.90) (4.50-5.90) Hemoglobin 12.9 GM/DL (13.0-17.0) Hematocrit 36.9 % 38.1 % (39.0-51.0) (39.0-51.0) Calcium Level 8.1 MG/DL (8.5-10.1) Neutrophils (%) (Auto) 73.6 % (16.0-70.0) Monocytes (%) (Auto) 12.9 % (0.0-8.0) Neutrophils # (Auto) 10.4 TH/MM3 (1.8-7.7) Monocytes # (Auto) 1.8 TH/MM3 (0-0.9) Sodium Level 135 MEQ/L (136-145) Estimat Glomerular Filtration 80 ML/MIN (>89) Rate Random Glucose 107 MG/DL (74-106) Hospital Course 46-year-old male smoker who presented to the emergency room because of chest pain. Patient states he developed moderate sharp right sided chest pain scale of 8 out of 10 that lasted for 15 minutes this morning and radiated to bilateral upper extremities associated with shortness of breath, diaphoresis and nausea. Slowly improved without medications. It recurred while he was preparing to go to work prompting ER evaluation. Patient states he's been having on and off exertional chest pain for the past 6 weeks. It is not pleuritic and doesn't feel like heartburn. 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 Denies dizziness and palpitations. No history of CAD, peripheral vascular disease, DVT and pulmonary embolism. He traveled to [facility] 3 weeks ago but denies leg pain. He has intermittent hand, foot pain and lower extremity swelling whenever he drinks last alcohol intake 3 weeks ago. In the emergency department, he was noted to have abnormal EKG(see below) and slightly elevated troponin. cardiac risk factors : positive family history for heart disease and a 36 pack year smoker. cath EF normal prox 90% LAD 10/11 scheduled for surgery in am CABG 10/12 doing well surgery rescheduled for am 10/13 Minimally Invasive Coronary Artery Bypass Grafting x 1 (MIDCAB) with LANDIS to LAD 1200 crystalloid , 250cc/ EBL , 300cc urine extubated post surgery 10/14 went back into afib RVR today / Alejo v score 1.3 amiodarone bolus and gtt started, on BB will eval again additional mag given hold on diuresis will transfer to stepdown later today continue pulm toileting / on room air converted back to NSR , will dc IV amiodarone , restart po dc chest tube today, possible dc tomorrow with HHC continue BB, ASA, statin 2/4 D/C home Pt Condition on Discharge: Good Discharge Disposition: Disch w/ Home Health Serv Discharge Instructions DIET: Follow Instructions for: Heart Healthy Diet Activities you can perform: Shower Only-No Bath Activities to avoid: Lifting/Bending, Strenuous Activity, Driving Additional Activity Instructio: no lifting >8 lbs or gallon of milk Follow up Referrals: Cardiology - 1 Week PCP Follow-up - 1 Week Surgical New Medications: Nitroglycerin SL (Nitroglycerin SL) 0.4 Mg Subl 0.4 MG SL DIRECTED ONE TABLET UNDER TONGUE NEEDED FOR CHEST PAIN, MAY REPEAT EVERY FIVE MINUTES FOR A TOTAL OF 3 DOSES OR CALL 911 IF NO RELIEF PRN CHEST PAIN #100 Ref 0 TAB.SL Amiodarone (Amiodarone) 200 Mg Tab 400 MG PO Q12HR 400mg bid x 3 days, then 200mg bid x 3 days, 200mg daily heart rhythm #[address] (Aspirin EC) 81 Mg Tabdr 162 MG PO DAILY Prevent Blood Clot #30 TAB Atorvastatin (Lipitor) 80 Mg Tab 80 MG PO DAILY Cholesterol Management #30 Ref 2 TAB Clopidogrel (Plavix) 75 Mg Tab 75 MG PO DAILY Blood Clot Prevention #30 Ref 2 TAB Docusate Sodium (Dok) 100 Mg Cap 100 MG PO Q12HR Constipation #60 CAP Metoprolol Tartrate (Metoprolol Tartrate) 25 Mg Tab 25 MG PO BID Blood Pressure Management #60 Ref 2 TAB Multiple Vitamins W/ Minerals (Thera M Plus) 1 Tab 1 TAB PO DAILY multi vitamin #30 TAB Pravastatin (Pravachol) 40 Mg Tab 40 MG PO DAILY Cholesterol Management #30 TAB ([Aspirin Chew]) 81 MG CHEW 81 MG PO DAILY Blood Clot Prevention #100 Ref 2 TAB.CHEW Cameron Morel MD Oct 16, 2016 08:24
[2016-10-16] MEDS: DOCUSATE SODIUM 100 MG CAP PO SCH (08:50)
[2016-10-16] MEDS: SODIUM CHLORIDE 0.9% FLUSH 5 ML FLUSH IV FLUSH SCH (08:50)
[2016-10-16] MEDS: MULTIVITAMINS/MINERALS THERAPEUTIC TAB PO SCH (08:50)
[2016-10-16] MEDS: METOPROLOL TARTRATE 25 MG TAB PO SCH (08:51)
[2016-10-16] MEDS: ASPIRIN 81 MG CHEW TAB PO SCH (08:51)
[2016-10-16] MEDS: CLOPIDOGREL 75 MG TAB PO SCH (08:51)
[2016-10-16] MEDS: ATORVASTATIN 80 MG TAB PO SCH (08:51)
[2016-10-16] MEDS: AMIODARONE 200 MG TAB PO SCH (08:52)
[2016-10-16] MEDS: MAGNESIUM HYDROXIDE SUSP 30 ML CUP PO SCH (08:52)
[2016-10-16] MEDS: POLYETHYLENE GLYCOL 17 GM PKG PO SCH (08:52)
[2016-10-16] MEDS ORDERED: ASPI81TA11 PO (08:56)
--- NOTE | 2016-10-16 08:56 | HHI.PR ---
Subjective Remarks F/U CAD s/p CABG. Doing well ready to go home ambulating hallway dw RN and CVT surgeon Objective Vitals Vital Signs Date Time Temp Pulse Resp B/P Pulse Ox O2 Delivery O2 Flow Rate FiO2 10/16/16 08:23 96 21 10/16/16 07:00 74 10/16/16 05:00 77 10/16/16 04:15 98.5 67 16 119/75 94 10/16/16 04:12 95 Room Air 10/16/16 04:00 74 10/16/16 03:00 74 10/16/16 02:00 77 10/16/16 01:00 67 10/16/16 00:31 98.1 63 16 122/71 91 10/16/16 00:27 91 Room Air 10/16/16 00:00 66 10/15/16 23:00 63 10/15/16 22:00 73 10/15/16 20:44 97 10/15/16 20:00 77 10/15/16 19:57 98.2 79 16 138/67 94 10/15/16 19:24 94 Room Air 10/15/16 19:00 74 10/15/16 18:17 18 10/15/16 18:00 71 10/15/16 17:49 84 10/15/16 16:42 87 10/15/16 15:15 97.8 74 18 114/66 94 10/15/16 15:15 94 Room Air 10/15/16 15:15 85 10/15/16 14:25 64 10/15/16 13:20 65 10/15/16 12:14 18 10/15/16 12:08 68 10/15/16 12:08 97.7 64 18 118/69 94 10/15/16 12:08 94 Room Air 10/15/16 10:05 64 10/15/16 09:00 60 I/O 10/15/16 10/15/16 10/15/16 10/16/16 10/16/16 10/16/16 07:00 15:00 23:00 07:00 15:00 23:00 Intake Total 1140 ml 750 ml 680 ml Output Total 1395 ml 0 ml Balance -255 ml 750 ml 680 ml Intake Oral 840 ml 600 ml 680 ml IV Total 300 ml 150 ml 0 ml Output Urine Total 1325 ml Stool Total 0 ml Chest Tube Drainage Total 70 ml # Voids 4 5 # Bowel Movements 0 1 Result Diagram: 10/15/16 0615 10/16/16 0445 Objective Remarks GENERAL: Well-developed, well-nourished in no distress SKIN: Warm and dry. HEAD: Atraumatic. Normocephalic. EYES: Pupils equal and round. No scleral icterus. No injection or drainage. ENT: No nasal bleeding or discharge. Mucous membranes pink and moist. NECK: Trachea midline. No JVD. CARDIOVASCULAR: Irregularly irregular. Dry dressing. Chest tube in place RESPIRATORY: No accessory muscle use. Clear to auscultation. Breath sounds equal bilaterally. GASTROINTESTINAL: Abdomen soft, non-tender, nondistended. MUSCULOSKELETAL: Extremities without clubbing, cyanosis but with mild leg edema. No obvious deformities. NEUROLOGICAL: Awake and alert. No obvious cranial nerve deficits. Motor grossly within normal limits. Five out of 5 muscle strength in the arms and legs. Normal speech. Nonfocal PSYCHIATRIC: Appropriate mood and affect; insight and judgment normal. Procedures Cardiac catheterization Minimally Invasive Coronary Artery Bypass Grafting x 1 (MIDCAB) with LANDIS to LAD A/P Problem List: (1) NSTEMI (non-ST elevated myocardial infarction) ICD Code: I21.4 Status: Acute Assessment and Plan This is a 46-year-old male smoker who presented to the emergency room because of chest pain. Patient states he developed moderate sharp right sided chest pain scale of 8 out of 10 that lasted for 15 minutes this morning and radiated to bilateral upper extremities associated with shortness of breath, diaphoresis and nausea. Slowly improved without medications. It recurred while he was preparing to go to work prompting ER evaluation. Patient states he's been having on and off exertional chest pain for the past 6 weeks. It is not pleuritic and doesn't feel like heartburn. He has a [employer] business. Denies dizziness and palpitations. New onset A. fib/flutter w RVR. Labs unremarkable. ECHO WNL. Now in sinus rhythm. CT amiodarone, Lopressor and Cardizem drip as needed. Continue aspirin [id number] score of 1 (MO). NSTEMI status post cardiac catheterization s/p Minimally Invasive Coronary Artery Bypass Grafting x 1 (MIDCAB) with LANDIS to LAD. At this time he is stable , continue aspirin, Lopressor and Lipitor. Dc CT. Risk factor modification. Follow-up A1c 5.4. Tobacco cessation Transient low BP secondary to meds. Improved. Nitro paste discontinued. IV fluids as needed . Continue to monitor Grief from recent loss of his mother. Counselled DVT prophylaxis s/p Lovenox. SCDs and early ambulation Discharge Planning Stable for dc Quinton Alonso MD Oct 16, 2016 08:56
[2016-10-16] MEDS ORDERED: PERC5TAB12 PO (09:35)
== END 2016-10-16 10:58 | disposition home health service (06) | DRG 234 ==
LOC: NEPA 09:03 → NEDA 11:38 → HCIN 20:30 → HCVR 10-09 19:15 → HCPC 10-11 12:17 → OBSVTOIN 10-11 15:45 → HCIS 10-13 10:02 → HCVR 10-13 14:00 → HCPC 10-14 10:30
PROVIDERS: ADMIT Internal Medicine; ATTEND Internal Medicine
PROC: 4A023N7 Measurement of Cardiac Sampling and Pressure, Left Heart, Percutaneous Approach (ICD-10-PCS; 2016-10-08)
PROC: B2111ZZ Fluoroscopy of Multiple Coronary Arteries using Low Osmolar Contrast (ICD-10-PCS; 2016-10-08)
PROC: B2151ZZ Fluoroscopy of Left Heart using Low Osmolar Contrast (ICD-10-PCS; 2016-10-08)
PROC: B31N1ZZ Fluoroscopy of Other Upper Arteries using Low Osmolar Contrast (ICD-10-PCS; 2016-10-08)
PROC: 3E0T3CZ (ICD-10-PCS; 2016-10-13)
PROC: 02100Z9 Bypass Coronary Artery, One Artery from Left Internal Mammary, Open Approach (ICD-10-PCS; principal; 2016-10-13 08:27)
DX: I21.4 Non-ST elevation (NSTEMI) myocardial infarction (principal); I48.92 Unspecified atrial flutter; J44.9 Chronic obstructive pulmonary disease, unspecified; I48.91 Unspecified atrial fibrillation; F17.200 Nicotine dependence, unspecified, uncomplicated; I25.110 Atherosclerotic heart disease of native coronary artery with unstable angina pectoris; F43.21 Adjustment disorder with depressed mood; R03.1 Nonspecific low blood-pressure reading; Z82.49 Family history of ischemic heart disease and other diseases of the circulatory system
CPT/HCPCS: 36430; 71010; 71020; 76937; 80048; 80053; 80061; 81001; 82550; 82948; 83036; 83735; 84100; 84443; 84484; 85014; 85025; 85027; 85610; 85730; 86850; 86900; 86901; 86920; 87641; 93005; 93306; 93458; 93880; 94002; 94060; 94150; 94640; 94664; 94667; 94668; 96372; 96374; C1768; C1769; C1893; C9290; C9399; G0378; J0131; J0171; J0282; J0690; J1644; J1650; J1815; J1885; J1940; J2250; J2270; J2440; J2720; J3010; J3370; J3475; J3480; J7040; J7050; J7611; J7644; P9016; Q9967